=== PATIENT | male | born 1955 | race Caucasian/White ===

== ENCOUNTER 2021-01-15 19:06 | Inpatient (IN) | payer MEDICARE, SELFPAY ==
[2021-01-15] VITALS (8 sets, daily range): BP systolic 112–131; BP diastolic 74–101; PULSE 103–164; RESP 16–29; TEMP 36.4; O2SAT 91–100
--- NOTE | ~2021-01-15 | US_ITS ---
EXAMINATION: US right upper quadrant DATE: 01/19/2021 11:22 INDICATION: Right upper quadrant pain TECHNIQUE: Multiple grayscale and Doppler ultrasound images of the abdomen were obtained. COMPARISON: None available FINDINGS: Bowel gas obscures visualization of the pancreas. The visualized portions of the pancreas a re unremarkable. The liver demonstrates increased echogenicity, heterogenous echotexture, and decreas ed through transmission. No surface nodularity. Normal hepatopetal flow in the main portal vein. The gallbladder is normal with no abnormal wall thickening, pericholecystic fluid or stones. The normal c ommon bile duct measures 3 mm. IMPRESSION: 1. Diffuse hepatic steatosis Reviewed, dictated and finalized at location B.
--- NOTE | ~2021-01-15 | CT_ITS ---
EXAMINATION: CT brain wo con DATE: 01/17/2021 12:45 INDICATION: Confusion. COVID-19 positive. TECHNIQUE: Computed tomography (CT) of the head was performed without intravenous contrast. The mA wa s adjusted according to patient size. Iterative reconstruction technique was employed. The dose-lengt h product was 529.67 mGy-cm. COMPARISON: Head CT 10/14/2012 FINDINGS: There are scattered areas of low attenuation in the cerebral white matter, which is within normal limits for the patient's age. There is no intracranial hemorrhage, acute infarction, or abnorm al intracranial mass lesion. The ventricles are normal in size. The orbits are normal. There is mucos al thickening in the paranasal sinuses. The mastoid air cells are normal. IMPRESSION: 1. Normal aging brain. Reviewed, dictated and finalized at location A. IMPRESSION: 1. Normal aging brain.
--- NOTE | ~2021-01-15 | XR_ITS ---
EXAMINATION: XR chest 1V portable EXAM DATE: 01/19/2021 05:25 INDICATION: COVID pneumonia. TECHNIQUE: Portable AP frontal chest x-ray was obtained. Comparison is made to prior examination from 01/15/2021. FINDINGS: Again there is moderate amount of patchy bilateral airspace disease, appearance consistent with COVID pneumonia. Left hemidiaphragm elevation, could indicate chronic paralysis. No pneumothorax or pleural effusion. Cardiomediastinal silhouette is normal. IMPRESSION: 1. Moderate bilateral acute airspace disease consistent with COVID pneumonia. 2. Elevated left hemidiaphragm. Once patient's acute episode resolves, this could be evaluated with a fluoroscopic sniff test. Reviewed, dictated and finalized at location A. IMPRESSION: 1. Moderate bilateral acute airspace disease consistent with COVID pneumonia. 2. Elevated left hemidiaphragm. Once patient's acute episode resolves, this co uld be evaluated with a fluoroscopic sniff test.
--- NOTE | ~2021-01-15 | CT_ITS ---
EXAMINATION: CTA chest PE protocol DATE: 01/15/2021 20:43 INDICATION: Shortness of breath and cough TECHNIQUE: Computed tomography angiography (CTA) of the chest was performed with 100 mL Omnipaque-350 intravenous contrast timed to evaluate the pulmonary arteries. Coronal maximum intensity projection 3D-reconstructions were created by the technologist. The dose-length product (DLP) was 693.20 mGy-cm. Automated exposure control and iterative reconstruction technique were employed. COMPARISON: None. FINDINGS: The pulmonary arteries are well-opacified. No pulmonary embolism is identified. There are p atchy groundglass and nodular opacities of the lungs. There is no pleural effusion or pneumothorax. M ild mediastinal lymphadenopathy is noted. The heart size is normal. There is a small sliding hiatal h ernia. The liver is diffusely low in attenuation when compared with the spleen, consistent with hepat ic steatosis. There is mild nodularity of the left adrenal gland. There is mild thoracic spondylosis. IMPRESSION: 1. No pulmonary embolism. 2. Patchy groundglass and nodular opacities with an appearance compatible with COVID 19 pneumonia. Reviewed, dictated and finalized at location A.
--- NOTE | ~2021-01-15 | XR_ITS ---
EXAMINATION: XR chest 1V portable INDICATION: Cough and fever TECHNIQUE: Portable AP chest at 1935 hours COMPARISON: None available FINDINGS: There are patchy airspace opacities in all lung zones. No pleural effusion or pneumothorax is identified. The cardiomediastinal silhouette is normal. The visualized osseous structures are unre markable. IMPRESSION: 1. Patchy bilateral airspace opacities, consistent with pneumonia and/or pulmonary edema. Reviewed, dictated and finalized at location A. IMPRESSION: 1. Patchy bilateral airspace opacities, consistent with pneumonia and/or pulmon china edema.
--- NOTE | 2021-01-15 19:16 | ECG_ITS ---
Measurements Intervals [place] Rate: 171 P: [place]: 0 QRS: -18 QRSD: 88 T: 46 QT: 263 QTc: 445 Interpretive Statements ATRIAL FIBRILLATION WITH RAPID VENTRICULAR RESPONSE NONSPECIFIC ST & T-WAVE ABNORMALITY- HIGH LATERAL LEADS ABNORMAL ECG Electronically Signed On 01-16-2021 8:25:27 CDT by Sharif Galvan D.O.
--- NOTE | 2021-01-15 19:22 | ED.GENADULT ---
HPI - General Adult General Chief complaint: Nausea/Vomiting/Diarrhea Stated complaint: fever/ rapid HR Time Seen by Provider: 01/15/21 19:14 Source: RN notes reviewed History of Present Illness HPI narrative: Patient presents to emergency department from home for not feeling well. Patient states symptoms began 2 days ago with a cough this been nonproductive as well as generalized fatigue he states he is also been having associated nausea vomiting and diarrhea with generalized abdominal cramping he denies any measured fever but states he has been feeling hot at home. States he has been feeling shortness of breath but denies any chest pain patient states he has not had Covid vaccine he denies any loss of smell or taste Related Data Home Medications Medication Instructions Recorded Confirmed insulin human U-100 NPH-regulr See Rx Instructions SUB-Q .COMPLEX 05/02/20 10/05/20 70-30 mix 100 unit/mL subcutaneous susp Allergies Allergy/AdvReac Type Severity Reaction Status Date / Time No Known Allergies Allergy Verified 10/05/20 08:58 Review of Systems Review of Systems: Narrative: Gen.: Denies fevers or chills Eyes: Denies eye pain or visual change ENT: Denies congestion Respiratory: See HPI CV: Denies chest pain or palpitations GI: Reports nausea vomiting diarrhea Musculoskeletal: Denies back pain or muscle pain Neuro: Reports generalized weakness Skin: Denies rash Except as documented, all other systems reviewed and negative PMFSH Past Medical History Medical History Essential hypertension Mixed hyperlipidemia Type 2 diabetes mellitus without complication Family History Family History (System 04/14/20 @ 10:44 by Courtney Rodriguez) Father Acute myocardial infarction Mother Acute myocardial infarction Social History Social History Smoking status: Never smoker Alcohol intake: never Exam Narrative: Exam Narrative: APPEARANCE: No acute distress, nontoxic, resting in bed EYES: EOMI HEENT: Normocephalic, atraumatic, OMM RESPIRATORY: No respiratory distress Clear to auscultation bilaterally with no rhonchi wheezing or rales. CARDIOVASCULAR: Tachycardic and regular without murmurs rubs or gallops. ABDOMINAL: Soft, nontender, nondistended, no rebound or guarding MUSCULOSKELETAl: Moves all extremities. No clubbing, cyanosis or edema. NEURO: Awake and alert x 3. Following commands, speech normal, no focal deficits SKIN:: Warm, dry. No rashes lesions or abrasions PSYCHIATRIC: Normal affect/mood, Course Course Emergency Course: Discussed with Dr. Galvan for cardiology patient's persistent A. fib with RVR at this time request patient be started on metoprolol 25 mg p.o. every 6 hours agrees with Marcelino and will follow as inpatient Discussed with CRYSTAL Greene for Dr. Garrido presentation work-up agrees with admission at this time Discussed with patient and family results of workup and diagnosis. Discussed need for admission. Patient and family understand and agree to current treatment plan Vital Signs Vital signs: Vital Signs Pulse Rate 157 H 01/15/21 19:26 Respiratory Rate 29 H 01/15/21 19:26 Blood Pressure 112/79 01/15/21 19:26 Pulse Oximetry 91 01/15/21 19:26 Temperature 97.6 F 01/15/21 19:42 Pulse Rate 133 H 01/15/21 21:33 Respiratory Rate 26 H 01/15/21 21:31 Blood Pressure 122/101 H 01/15/21 21:31 Pulse Oximetry 93 01/15/21 21:31 Medical Decision Making Vital Signs Vital Signs: Vital Signs Pulse Rate 157 H 01/15/21 19:26 Respiratory Rate 29 H 01/15/21 19:26 Blood Pressure 112/79 01/15/21 19:26 Pulse Oximetry 91 01/15/21 19:26 Temperature 97.6 F 01/15/21 19:42 Pulse Rate 133 H 01/15/21 21:33 Respiratory Rate 26 H 01/15/21 21:31 Blood Pressure 122/101 H 01/15/21 21:31 Pulse Oximetry 93 01/15/21 21:31 Lab Data Result
[2021-01-15] MEDS: SODIUM CHLORIDE 0.9% IV 1,000 ML 999 ML IV CONT (19:26)
[2021-01-15] MEDS: dilTIAZem HCl INJ 25 MG/5 ML VIAL 10 MG IV PUSH (19:26)
[2021-01-15 19:53] LABS: Basophils Percent Auto 0.1 % (0.2-1.2); Hematocrit 46.5 % (42.0-52.0); Hemoglobin 16.2 g/dL (14.0-18.0); Immature Granulocyte Absolute 0.04 K/mm3 (0.00-0.031); Immature Granulocyte Percent A 0.5 % (0-0.5); Lymphocytes Absolute Auto 0.72 K/mm3 (0.9-3.2); Lymphocytes Percent Auto 9.6 % (18.3-44.2); Mean Corpuscular HGB Conc 34.8 g/dl (32-36); Mean Corpuscular Hemoglobin 27.8 pg (26-34); Mean Corpuscular Volume 79.9 fl (80-100); Mean Platelet Volume 11.1 fl (7.4-10.4); Monocytes Absolute Auto 0.6 K/mm3 (0.1-0.6); Monocytes Percent Auto 8.2 % (2.6-8.5); Neutrophils Absolute Auto 6.1 K/mm3 (1.3-6.7); Neutrophils Percent Auto 81.6 % (45.5-73.1); Platelet Count Result 173 k/mm3 (150-375); Red Blood Count 5.82 M/mm3 (4.6-6.20); White Blood Count 7.5 K/mm3 (4.5-10.0)
[2021-01-15 19:58] LABS: Prothrombin Time 13.5 Seconds (11.1-14.7)
[2021-01-15 19:59] LABS: Lactic Acid Reflex 2.2 mmol/L (0.7-2.1)
[2021-01-15 20:00] LABS: Alanine Aminotransferase 61 U/L (4-50); Albumin Level 4.3 g/dL (3.5-5.1); Alkaline Phosphatase 80 U/L (38-126); Anion Gap 12 mmol/L (8-16); Aspartate Amino Transferase 90 U/L (17-59); Bilirubin,Total 1.1 mg/dL (0.2-1.3); Blood Urea Nitrogen 18 mg/dL (9-20); Calcium 8.7 mg/dL (8.4-10.2); Carbon Dioxide 28 mmol/L (22-30); Chloride 91 mmol/L (98-107); Estimated CRCL calculation 78 ml/min; Estimated Glomerular Filt Rate > 60; Glucose 258 mg/dL (75-110); Lipase 62 U/L (23-300); Potassium 3.7 mmol/L (3.4-5.0); Sodium 131 mmol/L (137-145)
[2021-01-15 20:09] LABS: NT Pro B Type Natriuretic Pept 168 PG/ML (5-100)
[2021-01-15 20:12] LABS: Troponin I < 0.012 ng/mL (0.000-0.034)
[2021-01-15 20:57] LABS: D Dimer 0.99 ug/mL (<0.48)
[2021-01-15] MEDS: METOPROLOL TARTRATE 25 MG TABLET PO (21:33)
[2021-01-15 22:03] LABS: Add Urine Microscopic? YES; Appearance Urine Clear (Clear); Bilirubin Urine Negative (Negative); Blood Urine 1+ (Negative); Color Urine Yellow (Yellow); Glucose Urine UA 3+ mg/dL (Negative); Ketones Urine 1+ mg/dL (Negative); Leukocyte Esterase Ur Negative LEU/UL (Negative); Mucus Urine Rare /lpf; Nitrate Urine Negative (Negative); Protein Urine 3+ mg/dL (Negative); RBC Urine 0-2 /hpf (0-2); Squamous Epithelial Cell Urine Rare /hpf (Few); WBC Urine 0-3 /hpf
[2021-01-15 22:21] LABS: Specific Grav Ur 1.046 (1.001-1.035)
--- NOTE | 2021-01-15 22:21 | ECG_ITS ---
Measurements Intervals [place] Rate: 114 P: [place]: 0 QRS: 157 QRSD: 102 T: -15 QT: 316 QTc: 436 Interpretive Statements ATRIAL FIBRILLATION WITH RAPID VENTRICULAR RESPONSE BORDERLINE ST-T WAVE ABNORMALITY- INF/LAT LEADS BASELINE ARTIFACT- II, III, AVR, AVF, V2-V6 ABNORMAL ECG Electronically Signed On 01-16-2021 8:32:16 CDT by Sharif Galvan D.O.
[2021-01-15 22:39] LABS: Reflex Lactic Acid Yes or No Add Lactic
[2021-01-15] MEDS: ENOXAPARIN 100 MG/ML SYRINGE SUB-Q (22:59)
[2021-01-16] VITALS (14 sets, daily range): BP systolic 112–142; BP diastolic 7–86; PULSE 68–119; RESP 16–28; TEMP 35.8–37.4; O2SAT 90–98; BMI 31.1
--- NOTE | 2021-01-16 00:20 | ADMGEN ---
This patient, Shreyas Ramirez, was admitted to IMU Room 211-01 at 0020. Patient/family oriented to hospital policies and general routines including ID bracelet, bed and alarms, visiting hours, pain management, procedures, bathroom and other care routines, personal items, smoking policy, room service/diet, and visiting hours. Information on how to activate the Rapid Response Team has been discussed. Patient/Family are encouraged to report perceived risks to care and to ask questions if they do not understand what they are told or what they should do.
[2021-01-16 01:22] LABS: Lactic Acid 1.8 mmol/L (0.7-2.1)
[2021-01-16 01:35] LABS: Troponin I < 0.012 ng/mL (0.000-0.034)
--- NOTE | 2021-01-16 01:45 | PM.IMHP ---
H&P: HPI History of Present Illness Date/Time: 01/16/21 01:45 this is a 65-year-old male patient who states that he is been having a cough and fever and chills for at least 2 days. His cough is nonproductive. He denies any chest pain. He denies having any irregular heartbeat in the past. The patient stated he has not been around any sick contacts. Patient has generalized fatigue and body aches. The patient has been short of breath with exertion. He denies any loss of smell or taste and has not had his COVID vaccine. His blood sugar was 258. Troponin was negative. Lactic initially was 2.2. Chest x-ray was read as patchy bilateral airspace opacities, consistent with pneumonia and/or pulmonary edema. He had a chest CT a which was read as no pulmonary embolism. Patchy ground-glass and nodular opacities with in appearance compatible with COVID-19 pneumonia. Patient was found to be in AFib RVR. The patient was started on IV Cardizem drip. His initial heart rate was 157 and is now in the lower 100s. The patient was swabbed for COVID-19 and cardiology had been notified. Sodium 131. The patient is being admitted to observation in IMU on the date of service of 01/16/2021. Chief Complaint: Cough and fever Review of Systems Review of Systems: All systems reviewed & are unremarkable except as noted in HPI and below Constitutional: Constitutional: Reports as per HPI and Reports no additional constitutional complaints Eyes: Eyes: Reports as per HPI and Reports no additional eye complaints ENT: Reports system reviewed and no additional complaints, except as documented and Reports Normal hearing present Cardiovascular: Cardiovascular: Reports no additional cardiovascular complaints Respiratory: Respiratory: Reports no additional respiratory complaints and Reports no additional respiratory complaints Gastrointestinal: Gastrointestinal: Reports as per HPI and Reports no additional gastrointestinal complaints Musculoskeletal: Musculoskeletal: Reports no additional musculoskeletal complaints Integumentary/Breasts: Skin/Breast: Reports system reviewed and no additional complaints, except as docu and Reports as per HPI Neurologic: Reports system reviewed and no additional complaints, except as documented, Reports as per HPI and Reports Normal hearing present Psychiatric: Psychiatric: Reports no additional psychiatric complaints and Reports as per HPI Endocrine: Endocrine: Reports no additional endocrine complaints Hematologic/Lymphatic: Hematologic/Lymphatic: Reports no additional hematologic/lymphatic complaints Allergic/Immunologic: Allergic/Immunologic: Reports no additional allergic/immunologic complaints [facility] Past Medical History Medical History (Updated 01/16/21 @ 01:57 by Ramona Driver NP) Essential hypertension Mixed hyperlipidemia Type 2 diabetes mellitus without complication Surgical History Surgical History (Updated 01/16/21 @ 01:51 by Ramona Driver NP) No pertinent past surgical history Family History Family History Father Acute myocardial infarction Mother Acute myocardial infarction Sibling Multiple sclerosis Social History Social History (Updated 01/16/21 @ 01:52 by Ramona Driver NP) Social History: The patient lives with his significant other. 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 The patient has 2 children. The patient stated he does not have a durable power criminal attorney for healthcare. The patient is a full code. The patient is a lifelong nonsmoker. He denies any alcohol or illicit drugs. Smoking status: Never smoker Alcohol intake: never Substance use: never Substance use type: does not use Gender identity (if verbalized by the patient): Male Spiritual care concerns: No Meds Home Medications and Allergies Home Medications Medication Instructions Recorded Confirmed Type insulin human U-100 N
[2021-01-16] MEDS: METOPROLOL TARTRATE 25 MG TABLET PO ×3 (04:04→21:20)
[2021-01-16 05:05] LABS: Basophils Percent Auto 0.2 % (0.2-1.2); Hematocrit 45.4 % (42.0-52.0); Hemoglobin 15.7 g/dL (14.0-18.0); Immature Granulocyte Absolute 0.04 K/mm3 (0.00-0.031); Immature Granulocyte Percent A 0.7 % (0-0.5); Lymphocytes Absolute Auto 0.78 K/mm3 (0.9-3.2); Lymphocytes Percent Auto 13.9 % (18.3-44.2); Mean Corpuscular HGB Conc 34.6 g/dl (32-36); Mean Corpuscular Hemoglobin 27.9 pg (26-34); Mean Corpuscular Volume 80.6 fl (80-100); Monocytes Absolute Auto 0.5 K/mm3 (0.1-0.6); Monocytes Percent Auto 8.9 % (2.6-8.5); Neutrophils Absolute Auto 4.3 K/mm3 (1.3-6.7); Neutrophils Percent Auto 76.3 % (45.5-73.1); Platelet Count Result 144 k/mm3 (150-375); Red Blood Count 5.63 M/mm3 (4.6-6.20); White Blood Count 5.6 K/mm3 (4.5-10.0)
[2021-01-16 05:22] LABS: Alanine Aminotransferase 50 U/L (4-50); Albumin Level 3.7 g/dL (3.5-5.1); Alkaline Phosphatase 64 U/L (38-126); Anion Gap 8 mmol/L (8-16); Aspartate Amino Transferase 75 U/L (17-59); Bilirubin,Total 0.9 mg/dL (0.2-1.3); Blood Urea Nitrogen 17 mg/dL (9-20); Calcium 8.2 mg/dL (8.4-10.2); Carbon Dioxide 25 mmol/L (22-30); Chloride 95 mmol/L (98-107); Estimated CRCL calculation 93 ml/min; Estimated Glomerular Filt Rate > 60; Glucose 259 mg/dL (75-110); Magnesium 1.7 mg/dL (1.6-2.3); Potassium 3.4 mmol/L (3.4-5.0); Sodium 128 mmol/L (137-145)
[2021-01-16 05:32] LABS: Troponin I < 0.012 ng/mL (0.000-0.034)
[2021-01-16 06:10] LABS: Hemoglobin A1C 7.9 % (<5.7)
--- NOTE | 2021-01-16 06:34 | ECG_ITS ---
Measurements Intervals [place] Rate: 71 P: 75 [place]: 201 QRS: -24 QRSD: 108 T: 33 QT: 409 QTc: 445 Interpretive Statements SINUS RHYTHM NONSPECIFIC T-WAVE ABNORMALITY- ANTEROLAT/INF LEADS BASELINE WANDER- V1-V6 BORDERLINE ECG Electronically Signed On 01-17-2021 9:10:09 CDT by Sharif Galvan D.O.
--- NOTE | 2021-01-16 08:01 | PM.CNCAR ---
Assessment and Plan Assessment and plan (1) Atrial fibrillation with rapid ventricular response: Code(s): I48.91 - Unspecified atrial fibrillation Status: Acute Assessment and Plan: New onset probably related to possible Covid pneuomonia. [id number] 3. On Lovenox. Spontaneously cardioverted. Will stop Diltiazem drip. Start Metoprolol 25 mg PO every 12 hours to decrease risk of recurrence. (2) Suspected 2019-nCoV infection: Code(s): Z20.822 - Contact with and (suspected) exposure to COVID-19 Status: Acute Assessment and Plan: Covid status pending. Management as per hospitalist. (3) Essential hypertension: Code(s): I10 - Essential (primary) hypertension Status: Chronic Assessment and Plan: Stable. (4) Mixed hyperlipidemia: Code(s): E78.2 - Mixed hyperlipidemia Status: Chronic (5) Type 2 diabetes mellitus without complication: Code(s): E11.9 - Type 2 diabetes mellitus without complications Status: Chronic Assessment and Plan: Management as per hospitalist. History of Present Illness History of Present Illness Consult date/time: 01/16/21 08:01 Reason for consult: Atrial fib with RVR. 65 yr old man presents to ER with sob and fever. He has history of DM, hypertension and dyslipidemia. Reports that in last 2 days he felt fatigue, dry cough, fever and chills. He came to ER and it was noted he was in rapid atrial fib at 157 bpm. He was started on Diltiazem drip and around 5 am this morning he spontaneously cardioverted to sinus rhythm. Currently he reports dry cough and fatigue, but no fever or chills and no chest pain or sob. Normally he is able to walk over 1 mile without any problems. He did not get Covid vaccine. His covid test is pending. CXR shows patchy bilateral airspace opacities c/w pneumonia. CTA chest shows no pulm embolism; patchy groundglass and nodule opacities c/w covid pneumonia. Sodium is 128, AST 90 went to 75 and ALT 61 went to 50. TSH is normal. EKG snows atrial fibrilllation with RVR. Reason For Visit: COVID-19 suspected, atrial fibrillation with RVR Review of Systems Review of Systems: All systems reviewed & are unremarkable except as noted in HPI and below Constitutional: Constitutional: Reports as per HPI, Reports chills, Reports fatigue and Reports fever(s) Cardiovascular: Cardiovascular: Reports as per HPI, Denies chest pain, Denies irregular heart rhythm, Denies leg edema and Reports dyspnea Respiratory: Respiratory: Reports as per HPI, Reports cough and Reports dyspnea Gastrointestinal: Gastrointestinal: Reports as per HPI and Denies abdominal pain Genitourinary: Genitourinary: Reports as per HPI and Denies dysuria Musculoskeletal: Musculoskeletal: Reports as per HPI Neurologic: Reports as per HPI, Denies dizziness and Denies syncope [facility] Past Medical History Medical History (Updated 01/16/21 @ 01:57 by Ramona Driver NP) Essential hypertension Mixed hyperlipidemia Type 2 diabetes mellitus without complication Surgical History Surgical History (Updated 01/16/21 @ 01:51 by Ramona Driver NP) No pertinent past surgical history Family History Family History Father Acute myocardial infarction Mother Acute myocardial infarction Sibling Multiple sclerosis Social History Social History (Updated 01/16/21 @ 01:52 by Ramona Driver NP) Social History: The patient lives with his significant other. 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 The patient has 2 children. The patient stated he does not have a durable power ip technology transactions attorney for healthcare. The patient is a full code. The patient is a lifelong nonsmoker. He denies any alcohol or illicit drugs. Smoking status: Never smoker Alcohol intake: never Substance use: never Substance use type: does not use Gender identity (if verbalized by the patient): Male Spiritual c
[2021-01-16 08:56] LABS: Glucose Point of Care 260 (65-105)
[2021-01-16] MEDS: INSULIN ASPART (*BKC) 100 UNITS/ML SUB-Q ×2 (09:47→13:07)
[2021-01-16] MEDS: INSULIN HUMAN ISOPHAN/REGULAR 70/30 (*BKC) 100 UNITS/ML 50 UNITS SUB-Q (09:57)
[2021-01-16] MEDS: metFORMIN HCL 500 MG TABLET 1000 MG PO (09:58)
[2021-01-16] MEDS: ENOXAPARIN 100 MG/ML SYRINGE SUB-Q ×2 (09:58→21:21)
--- NOTE | 2021-01-16 11:17 | PM.IMPN ---
Progress Note: A&P Assessment and Plan (1) Atrial fibrillation with rapid ventricular response: Code(s): I48.91 - Unspecified atrial fibrillation Status: Acute (2) Suspected 2019-nCoV infection: Code(s): Z20.822 - Contact with and (suspected) exposure to COVID-19 Status: Acute (3) Pneumonia: Code(s): J18.9 - Pneumonia, unspecified organism Status: Acute (4) On long term care phlebotomist drug therapy: Code(s): Z79.899 - Other long term care phlebotomist (current) drug therapy Status: Acute (5) Type 2 diabetes mellitus without complication: Code(s): E11.9 - Type 2 diabetes mellitus without complications Status: Chronic (6) Essential hypertension: Code(s): I10 - Essential (primary) hypertension Status: Chronic (7) Mixed hyperlipidemia: Code(s): E78.2 - Mixed hyperlipidemia Status: Chronic Additional Plan This is a 65-year-old male patient who states that he is been having a cough and fever and chills for at least 2 days. His cough is nonproductive. He denies any chest pain. He denies having any irregular heartbeat in the past. The patient stated he has not been around any sick contacts. Patient has generalized fatigue and body aches. The patient has been short of breath with exertion. He denies any loss of smell or taste and has not had his COVID vaccine. His blood sugar was 258. Troponin was negative. Lactic initially was 2.2. Chest x-ray was read as patchy bilateral airspace opacities, consistent with pneumonia and/or pulmonary edema. He had a chest CT a which was read as no pulmonary embolism. Patchy ground-glass and nodular opacities with in appearance compatible with COVID-19 pneumonia. Patient was found to be in AFib RVR. The patient was started on IV Cardizem drip. His initial heart rate was 157 and is now in the lower 100s. The patient was swabbed for COVID-19 and cardiology had been notified. Sodium 131. The patient is being admitted to observation in IMU on the date of service of 01/16/2021. # Bialteral pneumonia; likely COVID. swab pending. on azithromycin and rocephin. check procalcitonin, if they do that. if normal, and covid positive, may stop antibiotics. # lactic acidosis: resole dnow. # Afib with rvr: newly diagnosed. likely from pneumonia. back to sinus rhythm since this am. cardiology on board. lovenox sq. on metoprolol per cards. was startedon diltizaem gtt whcihis now stoped. TSH normal. # Suspected COVID 19 inection: on isolation. intermittne mild hypoxia noted at night, could related to possible sleep apnea. # Hyponatremia: monitor. # Type 2 DM: ssi. a1c 7.9. home insulin. # HTN: home med # HLP: atorvastain on hold due to elevated liver enzymes. likely able to resume. # Elevated liver enzymes: mildly elevated. likely from infectious process as well. or hepatic congestion. # DVT proph: lovenox 10 mg sq bid Subjective Date/time seen: 01/16/21 11:17 overrustt aroudn 5 am he is back to sinus rhythm. no fever, chills. reports cough. denies any sob. low Spo2 alarms noted in the tele monitor as well. Review of Systems Review of Systems: Narrative: - CONSTITUTIONAL: Denies weight loss, fever and chills. - HEENT: Denies changes in vision and hearing - RESPIRATORY: Denies SOB , rerots cough. - CV: Denies palpitations and CP. - GI: Denies abdominal pain, nausea, vomiting and diarrhea. - : Denies dysuria and urinary frequency. - MSK: Denies myalgia and joint pain. - SKIN: Denies rash and pruritus. - NEUROLOGICAL: Denies headache and syncope. - PSYCHIATRIC: Denies recent changes in mood. Denies anxiety and depression. All systems reviewed & are unremarkable except as noted in HPI and below Exam Narrative: Exam Narrative: GENERAL: The patient is well developed, not in acute distress HEENT: Nonicteric sclerae, PERRLA, EOMI. Oropharynx clear. Moist mucous membranes. Conjunctivae appear well perfused. CHEST: Chest wall is nontender. HEART
[2021-01-16 12:39] LABS: Glucose Point of Care 216 (65-105)
[2021-01-16 18:05] LABS: Glucose Point of Care 68 (65-105)
[2021-01-16 18:05] LABS: Glucose Point of Care 78 (65-105)
[2021-01-16 19:42] LABS: SARS-CoV-2 RNA PCR Positive
[2021-01-16 20:46] LABS: Glucose Point of Care 80 (65-105)
[2021-01-17] VITALS (12 sets, daily range): BP systolic 111–142; BP diastolic 61–84; PULSE 71–99; RESP 18–20; TEMP 36.7–37.8; O2SAT 87–96
--- NOTE | 2021-01-17 | ECHO_ITS ---
Patient Info Name: hSreyas Ramirez Age: 65 years : 1955 Gender: Male Ht: 66 in Wt: 193 lbs BSA: 2.05 m2 HR: 77 bpm BP: 142 / 84 mmHg Technical Quality: Fair Exam Date: 01/17/2021 11:32 AM Exam Location: [facility], formerly [facility] Pulmonary Patient Status: Inpatient Admit Date: 01/15/2021 Staff Ordering Physician: Ramona Driver NP Prior Authorization Nurse: Shantel Lopez RDCS Attending Provider: Ollie Montesinos MD Referring Physician: Neisha SMITH; Exam Type: CA echo doppler color flow Study Info Indications I48.0 - Paroxysmal atrial fibrillation Complete two-dimensional, color flow and Doppler transthoracic echocardiogram is performed. Summary 1. Complete two-dimensional, color flow and Doppler transthoracic echocardiogram is performed. 2. Left ventricular chamber dimension is normal. 3. Ventricular septum is sigmoid shaped. No LVOT obstruction. 4. Left ventricular systolic function is normal, estimated at 65-70%. 5. The left ventricular diastolic function is grade I diastolic dysfunction. 6. E/e' 7 is not elevated. 7. Global longitudinal strain is abnormal at -14.6%. 8. There is mild aortic valve sclerosis. Left Ventricle E/e' 7 is not elevated. Global longitudinal strain is abnormal at -14.6%. Ventricular septum is sigmoid shaped. No LVOT obstruction. Left ventricular chamber dimension is normal. Left ventricular systolic function is normal, estimated at 65-70%. The left ventricular diastolic function is grade I diastolic dysfunction. Right Ventricle Right ventricular chamber dimension is normal. Right ventricular systolic function is normal. Left Atria Left atrial chamber dimension is normal. Right Atria Right atrial chamber dimension is normal. Aortic Valve The aortic valve is trileaflet. There is mild aortic valve sclerosis. There is no aortic valve stenosis. There is no aortic valve regurgitation. Pulmonic Valve There is no pulmonic regurgitation. Mitral Valve There is no mitral valve stenosis. There is no mitral valve regurgitation. Tricuspid Valve There is no tricuspid valve regurgitation. Pericardium/Pleural There is no pericardial effusion. Inferior Vena Cava Inferior vena cava is not well visualized. Aorta The aortic root size at the sinus of Valsalva is normal. Left Ventricular Outflow Tract Name Value Normal LVOT 2D LVOT Diameter 1.9 cm LVOT Doppler LVOT Peak Gradient 5 mmHg LVOT Mean Gradient 3 mmHg LVOT VTI 20 cm LVOT VTI/AV VTI Ratio 0.8 LVOT Stroke Volume 56 ml LVOT CO 4.3 l/min LVOT CI 2.1 l/min/m2 Pulmonic Valve Name Value Normal RVOT Doppler RVOT Peak Gradient 2 mmHg
[2021-01-17 05:30] LABS: Basophils Percent Auto 0.1 % (0.2-1.2); Hematocrit 44.9 % (42.0-52.0); Hemoglobin 15.3 g/dL (14.0-18.0); Immature Granulocyte Absolute 0.04 K/mm3 (0.00-0.031); Immature Granulocyte Percent A 0.5 % (0-0.5); Lymphocytes Absolute Auto 0.95 K/mm3 (0.9-3.2); Mean Corpuscular HGB Conc 34.1 g/dl (32-36); Mean Corpuscular Hemoglobin 27.3 pg (26-34); Mean Corpuscular Volume 80.2 fl (80-100); Monocytes Absolute Auto 0.4 K/mm3 (0.1-0.6); Monocytes Percent Auto 5.6 % (2.6-8.5); Neutrophils Absolute Auto 5.9 K/mm3 (1.3-6.7); Neutrophils Percent Auto 80.8 % (45.5-73.1); Platelet Count Result 175 k/mm3 (150-375); Red Cell Distribution Width 14.1 % (11.5-14.5); White Blood Count 7.3 K/mm3 (4.5-10.0)
[2021-01-17 05:45] LABS: Alanine Aminotransferase 53 U/L (4-50); Albumin Level 3.7 g/dL (3.5-5.1); Alkaline Phosphatase 65 U/L (38-126); Anion Gap 7 mmol/L (8-16); Aspartate Amino Transferase 87 U/L (17-59); Bilirubin,Total 0.9 mg/dL (0.2-1.3); Blood Urea Nitrogen 19 mg/dL (9-20); Calcium 8.3 mg/dL (8.4-10.2); Carbon Dioxide 31 mmol/L (22-30); Chloride 94 mmol/L (98-107); Estimated CRCL calculation 85 ml/min; Estimated Glomerular Filt Rate > 60; Glucose 122 mg/dL (75-110); Potassium 3.3 mmol/L (3.4-5.0); Sodium 132 mmol/L (137-145)
--- NOTE | 2021-01-17 07:49 | PM.PNCARD ---
Progress Note: A&P Assessment and Plan (1) Atrial fibrillation with rapid ventricular response: Code(s): I48.91 - Unspecified atrial fibrillation Status: Acute Assessment and Plan: New onset probably related to Covid pneuomonia. [id number] 3. On Lovenox; if no recurrence of atrial fib, consider changing Lovenox to DVT prophylaxis dose. Spontaneously cardioverted. Stopped Diltiazem drip. Started Metoprolol 25 mg PO every 12 hours to decrease risk of recurrence. Mag 1.7. Will give Mag Chito 2 gm IVx1. Potassium 3.3. KCl already ordered. (2) Essential hypertension: Code(s): I10 - Essential (primary) hypertension Status: Chronic Assessment and Plan: Stable. (3) Mixed hyperlipidemia: Code(s): E78.2 - Mixed hyperlipidemia Status: Chronic (4) Type 2 diabetes mellitus without complication: Code(s): E11.9 - Type 2 diabetes mellitus without complications Status: Chronic Assessment and Plan: Management as per hospitalist. (5) Confusion: Code(s): R41.0 - Disorientation, unspecified Status: Acute Assessment and Plan: Covid related? Needs evaluation by hospitalist. (6) COVID-19: Code(s): U07.1 - COVID-19 Status: Acute Assessment and Plan: Management as per hospitalist. Subjective Date/time seen: 01/17/21 07:49 He is confused this morning. He pulled off all his clothes and telemetry leads. He is alert only to name and not place or year. Denies chest pain, sob, fatigue, fever/chills. Exam Const: General: cooperative, no acute distress, alert and confusion Resp: Auscultation: clear to auscultation bilaterally, no crackles, no rales, no rhonchi and no wheezes Cardio: Rate: regular rate Rhythm: regular rhythm Heart sounds: no murmurs Peripheral pulses: dorsalis pedis present GI: GI Palp: No abdominal tenderness and Yes Soft to palpation Neuro: General: oriented to person, No oriented to place and No oriented to time Extrem: Right lower extremity: no edema Left lower extremity: no edema Objective Data Vital Signs Vital Signs: Vital Signs - 24 hr 01/16/21 08:00 01/16/21 09:55 01/16/21 10:00 Temperature 96.5 F L Pulse Rate 73 77 70 Respiratory Rate 20 Blood Pressure 124/80 Pulse Oximetry 93 01/16/21 12:00 01/16/21 14:00 01/16/21 16:00 Temperature 97.3 F L 98.4 F Pulse Rate 72 83 79 Respiratory Rate 20 24 H Blood Pressure 112/7 L 132/71 Pulse Oximetry 93 92 01/16/21 20:00 01/16/21 21:20 01/17/21 00:00 Temperature 99.3 F 98.9 F Pulse Rate 90 86 73 Respiratory Rate 20 20 Blood Pressure 142/84 H 129/61 Pulse Oximetry 92 90 01/17/21 04:00 Temperature 99.3 F Pulse Rate 87 Respiratory Rate 20 Blood Pressure 142/84 H Pulse Oximetry 92 Intake/Output Intake/Output: Intake & Output 01/14/21 01/15/21 01/16/21 01/17/21 23:59 23:59 23:59 23:59 Intake Total 1000 1240 Output Total 1700 700 Balance 1000 -460 -700 Meds/Results Medications: Active Medications Generic Name Dose Route Start Last Admin Trade Name Freq PRN Reason Stop Dose Admin Albuterol 2 puff 01/16/21 01:42 Albuterol Sulfate (*Sp) Aerosol 1 Puff INHALATION Q6HRT PRN Shortness Of Breath Dextrose 12.5 gm 01/16/21 01:54 Dextrose 50% 25 Gm/50 Ml Syringe IV PUSH PRN PRN Hypoglycemia Protocol Enoxaparin Sodium 100 mg 01/16/21 11:00 01/16/21 21:21 Enoxaparin 100 Mg/Ml Syringe SUB-Q 100 mg Q12H CHAZ Administration Glucagon 1 mg 01/16/21 01:54 Glucagon For Inj 1 Mg Vial IM PRN PRN Hypoglycemia Protocol Glucose 15 gm 01/16/21 01:54 Glucose Oral Gel 15 Gm Of Glucse In 37.5 Gm Tube PO PRN PRN Hypoglycemia Protocol Dextrose 1,000 mls @ 100 mls/hr 01/16/21 01:54 Dextrose 5% 1,000 Ml IVPB PRN PRN Hypoglycemia Protocol Magnesium Sulfate 2 gm in 50 mls @ 50 mls/hr 01/17/21 07:25 Magnesium Sulf 2
[2021-01-17 08:58] LABS: Glucose Point of Care 136 (65-105)
[2021-01-17 08:59] LABS: Glucose Point of Care 148 (65-105)
[2021-01-17] MEDS: POTASSIUM CHLORIDE 20 MEQ TABLET 40 MEQ PO (09:42)
[2021-01-17] MEDS: METOPROLOL TARTRATE 25 MG TABLET PO ×2 (09:42→20:41)
[2021-01-17] MEDS: ENOXAPARIN 100 MG/ML SYRINGE SUB-Q (09:43)
[2021-01-17] MEDS: MAGNESIUM SULF 2 GM/WATER 50ML 2 GM/50 ML BAG IVPB (09:43)
--- NOTE | 2021-01-17 12:02 | PM.IMPN ---
Progress Note: A&P Assessment and Plan (1) Confusion: Code(s): R41.0 - Disorientation, unspecified Status: Acute Assessment and Plan: Patient is alert but confused. More consistent with delirium. Call was placed to family but no answer at the listed. Need to determine baseline. Will check TSH and B12. Check CT of the brain. He is not eating so will add protonix for now to cover for gastritis. (2) Atrial fibrillation with rapid ventricular response: Code(s): I48.91 - Unspecified atrial fibrillation Status: Acute Assessment and Plan: Most likely in response to his COVID pneumonia. [id number] 3 and on Lovenox. He converted on Diltiazem and Metoprolol given in ED. Cardiology has been consulted. He is currently on metoprolol. No plans for occupational psychologist anticoagulation per cardiology. Change to Lovenox prophylaxis and add ASA. Echo is pending. (3) Pneumonia due to COVID-19 virus: Code(s): U07.1 - COVID-19; J12.82 - Pneumonia due to coronavirus disease 2018 Status: Acute Assessment and Plan: Patient with cough, GI symptoms and SOB. CXR showing patchy bilateral disease. He tested positive for COVID on 01/15. He was done well and has not required O2. No ABG noted. Continue to monitor. Abx stopped (4) Type 2 diabetes mellitus without complication: Code(s): E11.9 - Type 2 diabetes mellitus without complications Status: Chronic Assessment and Plan: A1c 7.9. The patient's blood glucose was reviewed on 01/17 Glucose remains well controlled. Continue AccuCheks covering with sliding scale. Hypoglycemia protocol available as needed. Not eating much so glucose lower than expected. Metformin on hold now. Will Hold 70/30 this morning and decrease the dose. Add supplements. (5) Essential hypertension: Code(s): I10 - Essential (primary) hypertension Status: Chronic Assessment and Plan: Patient's blood pressure was reviewed on 01/17 Blood pressure remains well controlled. Will continue current medications with metoprolol. (6) Mixed hyperlipidemia: Code(s): E78.2 - Mixed hyperlipidemia Status: Chronic Assessment and Plan: Liver enzymes elevated probably related to the virus. Lipitor on hold. Liver enzymes waxing and waning still. (7) DVT prophylaxis: Code(s): Z29.9 - Encounter for prophylactic measures, unspecified Status: Acute Assessment and Plan: Lovenox Subjective Date/time seen: 01/17/21 12:02 Interval history: 65yo male with DM and HTN here for cough and found to have COVID PNA. Assuming care. Chart reviewed. Patient is alert but confused. History is unreliable. Nursing states patient has been ambulating in his room naked. Review of Systems Review of Systems: ROS unobtainable: Yes unobtainable due to mental status Exam Narrative: Exam Narrative: AF 99.3 111/70 98 20 92% ra Gen - NARD HEENT -NC/AT. No facial asymmetry. Neck -supple. No meningismus signs. Chest -faint diffuse inspiratory crackles bilaterally. Normal respiratory rate. CV - RRR S1/S2. Telemetry showing no significant dysrhythmias Abd - Soft, NT/ND, Positive BS Ext - No pedal edema Neuro -alert but confused. No focal weakness. Psych - Nml mood and affect Skin - Warm and dry Objective Data Vital Signs Vital Signs: Vital Signs - 24 hr 01/16/21 14:00 01/16/21 16:00 01/16/21 20:00 Temperature 98.4 F 99.3 F Pulse Rate 83 79 90 Respiratory Rate 24 H 20 Blood Pressure 132/71 142/84 H Pulse Oximetry 92 92 01/16/21 21:20 01/17/21 00:00 01/17/21 04:00 Temperature 98.9 F 99.3 F Pulse Rate 86 73 87 Respiratory Rate 20 20 Blood Pressure 129/61 142/84 H Pulse Oximetry 90 92 01/17/21 08:00 01/17/21 08:26 01/17/21 09:42 Temperature 99.3 F Pulse Rate 99 98 Respiratory Rate 20 Blood Pressure 111/70 Pulse Oximetry 92 92 Intake/Output Intake
[2021-01-17 12:46] LABS: Glucose Point of Care 207 (65-105)
[2021-01-17] MEDS: INSULIN ASPART (*BKC) 100 UNITS/ML SUB-Q ×2 (12:49→17:43)
[2021-01-17 13:05] LABS: Base Excess ABG 2.1 mEq/l (+/-2.0); Fractional Inspired Oxygen 21 %; HCO3 ABG 24.2 mEq/l (22.0-26.0); Oxygen Content ABG 19.1 %vol (16.0-22.0); Oxygen Saturation ABG 91.2 % (95.0-100.0); PCO2 ABG 30.9 mmHg (35.0-45.0); PO2 ABG 53.7 mmHg (80.0-100.0); PO2 FiO2 Ratio Arterial Blood 2.56 %; Total Hemoglobin 15.3 g/dL (12.0-18.0)
[2021-01-17 13:07] LABS: Device ROOM AIR; Modified Allen's Test Pass; Site Drawn LEFT RADIAL; pH ABG 7.512 (7.350-7.450)
[2021-01-17] MEDS: PANTOPRAZOLE 40 MG TABLET PO (14:49)
[2021-01-17 17:22] LABS: Glucose Point of Care 251 (65-105)
[2021-01-17] MEDS: INSULIN HUMAN ISOPHAN/REGULAR 70/30 (*BKC) 100 UNITS/ML 15 UNITS SUB-Q (17:44)
[2021-01-17] MEDS: ACETAMINOPHEN 325 MG TABLET 650 MG PO (17:46)
[2021-01-17 20:00] LABS: Glucose Point of Care 195 (65-105)
[2021-01-18] VITALS (27 sets, daily range): BP systolic 115–160; BP diastolic 64–89; PULSE 63–144; RESP 17–26; TEMP 36.7–37.9; O2SAT 86–99
[2021-01-18 01:53] LABS: Alveolar/Arterial O2 Gradient 164.4 mmHg; Base Excess ABG 5.6 mEq/l (+/-2.0); Carboxyhemoglobin 0.3 % THb (0-2.0); Fractional Inspired Oxygen 36 %; HCO3 ABG 26.5 mEq/l (22.0-26.0); Methemoglobin ABG 0.2 %THb (0-1.5); Oxygen Content ABG 19.6 %vol (16.0-22.0); Oxygen Saturation ABG 94.2 % (95.0-100.0); Oxyhemoglobin 92.3 % THb (90.0-100.0); PCO2 ABG 28.9 mmHg (35.0-45.0); PO2 ABG 58.8 mmHg (80.0-100.0); PO2 FiO2 Ratio Arterial Blood 1.63 %; Reduced Hemoglobin 7.2 %THb (0-5.0); Total Hemoglobin 15.1 g/dL (12.0-18.0)
[2021-01-18 01:55] LABS: Device NASAL CANNULA; Modified Allen's Test Pass; Site Drawn RIGHT RADIAL; pH ABG 7.581 (7.350-7.450)
[2021-01-18 04:03] LABS: Basophils Percent Auto 0.1 % (0.2-1.2); Hematocrit 43.2 % (42.0-52.0); Hemoglobin 14.7 g/dL (14.0-18.0); Immature Granulocyte Absolute 0.06 K/mm3 (0.00-0.031); Immature Granulocyte Percent A 0.7 % (0-0.5); Lymphocytes Absolute Auto 0.75 K/mm3 (0.9-3.2); Lymphocytes Percent Auto 8.2 % (18.3-44.2); Mean Corpuscular Hemoglobin 27.7 pg (26-34); Mean Corpuscular Volume 81.5 fl (80-100); Mean Platelet Volume 11.4 fl (7.4-10.4); Monocytes Absolute Auto 0.4 K/mm3 (0.1-0.6); Monocytes Percent Auto 4.4 % (2.6-8.5); Neutrophils Absolute Auto 7.9 K/mm3 (1.3-6.7); Neutrophils Percent Auto 86.6 % (45.5-73.1); Platelet Count Result 204 k/mm3 (150-375); Red Cell Distribution Width 14.5 % (11.5-14.5); White Blood Count 9.1 K/mm3 (4.5-10.0)
[2021-01-18 04:29] LABS: Alanine Aminotransferase 55 U/L (4-50); Albumin Level 3.9 g/dL (3.5-5.1); Alkaline Phosphatase 72 U/L (38-126); Anion Gap 6 mmol/L (8-16); Aspartate Amino Transferase 90 U/L (17-59); Blood Urea Nitrogen 19 mg/dL (9-20); Calcium 8.5 mg/dL (8.4-10.2); Carbon Dioxide 32 mmol/L (22-30); Chloride 94 mmol/L (98-107); Estimated CRCL calculation 96 ml/min; Estimated Glomerular Filt Rate > 60; Glucose 182 mg/dL (75-110); Potassium 3.7 mmol/L (3.4-5.0); Sodium 132 mmol/L (137-145)
[2021-01-18 05:31] LABS: Folic Acid 10.1 ng/mL (2.76->20)
--- NOTE | 2021-01-18 08:09 | PM.PNCARD ---
Progress Note: A&P Assessment and Plan (1) Atrial fibrillation with rapid ventricular response: Code(s): I48.91 - Unspecified atrial fibrillation Status: Acute Assessment and Plan: New onset probably related to Covid pneuomonia. [id number] 3. On Lovenox; if no recurrence of atrial fib, consider changing Lovenox to DVT prophylaxis dose. On Aspirin 325 mg daily. Spontaneously cardioverted. Stopped Diltiazem drip. On Metoprolol 25 mg PO every 12 hours to decrease risk of recurrence. Echo 01/17/21 EF 65-70%, grade I diastolic dysfunction (E/e' 7). Echo is essentially normal. (2) Essential hypertension: Code(s): I10 - Essential (primary) hypertension Status: Chronic Assessment and Plan: Stable. (3) Mixed hyperlipidemia: Code(s): E78.2 - Mixed hyperlipidemia Status: Chronic Assessment and Plan: Hold off on statin due to transaminitis. (4) Type 2 diabetes mellitus without complication: Code(s): E11.9 - Type 2 diabetes mellitus without complications Status: Chronic Assessment and Plan: Management as per hospitalist. (5) Confusion: Code(s): R41.0 - Disorientation, unspecified Status: Acute Assessment and Plan: Covid infection/pneumonia related or his baseline? Needs evaluation by hospitalist. (6) COVID-19: Code(s): U07.1 - COVID-19 Status: Acute Assessment and Plan: Management as per hospitalist. Subjective Date/time seen: 01/18/21 08:09 Patient is alert but confused and oriented only to name (not place or year). Denies chest pain or sob. Exam Const: General: cooperative, no acute distress, alert and confusion Resp: Auscultation: clear to auscultation bilaterally, no crackles, no rales, no rhonchi and no wheezes Cardio: Rate: regular rate Rhythm: regular rhythm Heart sounds: no murmurs Peripheral pulses: dorsalis pedis present GI: GI Palp: No abdominal tenderness and Yes Soft to palpation Neuro: General: oriented to person, No oriented to place and No oriented to time Extrem: Right lower extremity: no edema Left lower extremity: no edema Objective Data Vital Signs Vital Signs: Vital Signs - 24 hr 01/17/21 08:26 01/17/21 09:42 01/17/21 12:00 Temperature 100.1 F H Pulse Rate 98 75 Respiratory Rate 20 Blood Pressure 135/77 Pulse Oximetry 92 90 01/17/21 13:00 01/17/21 16:00 01/17/21 17:46 Temperature 100.1 F H 100.1 F H Pulse Rate 86 Respiratory Rate 20 Blood Pressure 123/65 Pulse Oximetry 91 91 01/17/21 20:00 01/17/21 20:41 01/17/21 23:14 Temperature 98.0 F 98.0 F Pulse Rate 79 74 71 Respiratory Rate 20 18 Blood Pressure 121/64 130/69 Pulse Oximetry 93 96 01/18/21 00:00 01/18/21 00:06 01/18/21 01:56 Temperature Pulse Rate 75 75 Respiratory Rate Blood Pressure Pulse Oximetry 89 L 93 86 L 01/18/21 02:00 01/18/21 02:22 01/18/21 03:01 Temperature Pulse Rate Respiratory Rate Blood Pressure Pulse Oximetry 93 93 90 01/18/21 04:00 Temperature 98.1 F Pulse Rate 84 Respiratory Rate 22 H Blood Pressure 160/89 H Pulse Oximetry 93 Intake/Output Intake/Output: Intake & Output 01/15/21 01/16/21 01/17/21 01/18/21 23:59 23:59 23:59 23:59 Intake Total 1000 1240 100 Output Total 1700 700 850 Balance 1000 460 -700 -750 Meds/Results Medications: Active Medications Generic Name Dose Route Start Last Admin Trade Name Freq PRN Reason Stop Dose Admin Acetaminophen 650 mg 01/17/21 17:24 01/17/21 17:46 Acetaminophen 325 Mg Tablet PO 650 mg Q6H PRN Administration Mild Pain (1-3) or Fever Albuterol 2 puff 01/16/21 01:42 Albuterol Sulfate (*Sp) Aerosol 1 Puff INHALATION Q6HRT PRN Shortness Of Breath Aspirin 325 mg 01/18/21 08:00 Aspirin 325 Mg Tablet PO DAILY@0800 [facility] Dextrose 12.5 gm 01/16/21 01:54 Dextrose 50% 25 Gm/50 Ml Syringe IV PUSH PRN PRN Hypoglyc
[2021-01-18 08:54] LABS: Glucose Point of Care 197 (65-105)
[2021-01-18] MEDS: PANTOPRAZOLE 40 MG TABLET PO (09:30)
[2021-01-18] MEDS: ENOXAPARIN 40 MG/0.4 ML SYRINGE SUB-Q (09:30)
[2021-01-18] MEDS: ASPIRIN 325 MG TABLET PO (09:30)
[2021-01-18] MEDS: METOPROLOL TARTRATE 25 MG TABLET PO ×2 (09:31→20:31)
[2021-01-18] MEDS: INSULIN HUMAN ISOPHAN/REGULAR 70/30 (*BKC) 100 UNITS/ML 15 UNITS SUB-Q ×2 (09:37→17:43)
--- NOTE | 2021-01-18 12:35 | PM.IMPN ---
Progress Note: A&P Assessment and Plan (1) Pneumonia due to COVID-19 virus: Code(s): U07.1 - COVID-19; J12.82 - Pneumonia due to coronavirus disease 2019 Status: Acute Assessment and Plan: Patient with cough, GI symptoms and SOB. CXR showing patchy bilateral disease. He tested positive for COVID on 01/15. He initially did not require O2 but now on HFNC since overnight. ABG 7.58/29/59 on 4L. Will repeat CXR. Add Remdesivir and Decadron. IS. Schedule Albuterol. (2) Confusion: Code(s): R41.0 - Disorientation, unspecified Status: Acute Assessment and Plan: Patient is alert and more oriented today consistent with delirium. CT brain showing no acute findings. TSH and B12 levels okay. Suspect related to COVID. Related to the urine retention? Continue to monitor (3) Atrial fibrillation with rapid ventricular response: Code(s): I48.91 - Unspecified atrial fibrillation Status: Acute Assessment and Plan: Most likely in response to his COVID pneumonia. [id number] 3 and on Lovenox. He converted on Diltiazem and Metoprolol given in ED. Cardiology has been consulted. He is currently on oral metoprolol. Echo showing EF 65-70% and Grade I diastolic dysfunction. No plans for supervisor intermediates anticoagulation per cardiology. Changed to Lovenox prophylaxis and ASA added per their recommendations. (4) Urine retention: Code(s): R33.9 - Retention of urine, unspecified Status: Acute Assessment and Plan: Patient was found to have urine retention. Lock catheter placed. Will add Flomax. Increase activity level. (5) Type 2 diabetes mellitus without complication: Code(s): E11.9 - Type 2 diabetes mellitus without complications Status: Chronic Assessment and Plan: A1c 7.9. The patient's blood glucose was reviewed on 01/18 Glucose remains well controlled. Continue AccuCheks covering with sliding scale. Hypoglycemia protocol available as needed. Not eating much so glucose lower than expected. Metformin on hold now. Will continue 70/30 at current lower dose and monitor. Continue supplements. Encouraged oral intake. (6) Essential hypertension: Code(s): I10 - Essential (primary) hypertension Status: Chronic Assessment and Plan: Patient's blood pressure was reviewed on 01/18 Blood pressure remains well controlled. Will continue current medications with metoprolol. (7) Mixed hyperlipidemia: Code(s): E78.2 - Mixed hyperlipidemia Status: Chronic Assessment and Plan: Liver enzymes elevated probably related to the virus. Lipitor on hold. CT chest showing hepatic steatosis so elevated levels probably related to this. Liver enzymes still waxing and waning. Check RUQ US. (8) DVT prophylaxis: Code(s): Z29.9 - Encounter for prophylactic measures, unspecified Status: Acute Assessment and Plan: Lovenox Subjective Date/time seen: 01/18/21 12:35 Interval history: 65yo male with DM and HTN here for cough and found to have COVID PNA. More oriented today. Patient feels better. Denies feeling SOB. He became more hypoxic last night requiring now high flow O2. He also was noted to have urine retention with about 1L with Lock placement. Exam Narrative: Exam Narrative: Tm 100.0 98.2 139/77 18 91% HFNC Gen - NARD lying semi-recumbent in bed Chest -faint diffuse inspiratory crackles bilaterally o/w distant BS. Normal respiratory rate. CV - RRR S1/S2. Telemetry showing NSR, no dysrhythmias Abd - Soft, NT/ND, Positive BS Ext - No pedal edema Neuro -awake, groggy but oriented x4 now. No focal weakness. Sits up at the side of the bed under his own power Psych - Nml mood and affect Skin - Warm and dry Objective Data Vital Signs Vital Signs: Vital Signs - 24 hr 01/17/21 13:00 01/17/21 16:00 01/17/21 17:46 Temperature 100.1 F H 100.1 F H Pulse Ra
[2021-01-18 12:41] LABS: Glucose Point of Care 191 (65-105)
[2021-01-18] MEDS: ALBUTEROL SULFATE (*SP) AEROSOL 1 PUFF 2 PUFF INHALATION (16:15)
[2021-01-18 16:43] LABS: Glucose Point of Care 237 (65-105)
--- NOTE | 2021-01-18 17:09 | PM.CNPUL ---
Assessment and Plan Assessment and plan (1) Pneumonia due to COVID-19 virus: Code(s): U07.1 - COVID-19; J12.82 - Pneumonia due to coronavirus disease 2019 Status: Acute Assessment and Plan: Patient with COVID pneumonia diagnosed on 01/15 with worsening oxygenation today on 01/18 and started on dexamethasone 6 mg IV q.6 hours and Remdesivir. I have also ordered convalescent plasma. At this time I do not think there are any other complicating pulmonary issues such as bacterial pneumonia, congestive heart failure, pulmonary emboli that need to be addressed. Will check CXR and BNP in morning (minus 1820 since admission). (2) Respiratory failure with hypoxia: Code(s): J96.91 - Respiratory failure, unspecified with hypoxia Status: Acute Assessment and Plan: Patient with COVID pneumonia and hypoxemic respiratory failure. 01/15 admit to floor 19:00 Room air, sats 100% 01/16 08:00 Room air, sats 93% 01/17 08:00 Room air, sats 92% 01/17 20:00, 3 L NC sats 93% 01/18 00:15, 6 L NC sats 93% 01/18 08:00, high flow 40L and 70% sats 91% 01/18 17:00 high flow 40L and 70% sats 95%. For worsening oxygenation increase high flow NC to 100% and if remains with sats < 90% BiPAP 100% and transfer to ICU and if remains with sats < 90% on BiPAP 100% consider intubation. Will follow with you. History of Present Illness History of Present Illness Consult date: 01/18/21 Requesting physician: Ollie Montesinos MD Reason for consult: hypoxemia and other (COVID) Chief complaint: COVID-19 suspected, atrial fibrillation with RVR Narrative: This is a new pulmonary consult with COVID pneumonia and hypoxemic respiratory failure This is a 65-year-old man with a history of hypertension hyperlipidemia and diabetes who presented on 01/15 with fever and shortness of breath. Patient tested positive for SARS-CoV-2 by RT PCR on 01/15/2021. He was in Afib/RVR. Initial chest x-ray at that time showed patchy bilateral infiltrates. BNP was 168. Patient was saturating 98% on room air on 01/16 but developed beat worsening oxygenation. on 01/17 patient Had a room air blood gas that demonstrated a pH of 7.5 11/06/2053. Patient required 3 L nasal cannula on 01/17 and Today on 01/18 patient required high-flow nasal cannula at 40 L and 70% to maintain saturations at 95%. Earlier today patient was started on dexamethasone 6 mg IV q.day and REMdesivir. I was consulted. 01/18 patient is awake and following simple pump commands but does not know the date or the place. Patient is currently on high-flow nasal cannula at 40 L with 70% oxygen and his saturations are 95%. Patient's respiratory rate is 20 and he is in no respiratory distress. I have ordered convalescent plasma. Echo 01/17 Summary 1. Complete two-dimensional, color flow and Doppler transthoracic echocardiogram is performed. 2. Left ventricular chamber dimension is normal. 3. Ventricular septum is sigmoid shaped. No LVOT obstruction. 4. Left ventricular systolic function is normal, estimated at 65-70%. 5. The left ventricular diastolic function is grade I diastolic dysfunction. 6. E/e' 7 is not elevated. 7. Global longitudinal strain is abnormal at -14.6%. 8. There is mild aortic valve sclerosis. Review of Systems Review of Systems: Narrative: Denies any pain All systems reviewed & are unremarkable except as noted in HPI and below Eyes: Eyes: Reports no additional eye complaints ENT: Reports system reviewed and no additional complaints, except as documented Cardiovascular: Cardiovascular: Reports no additional cardiovascular complaints Respiratory: Respiratory: Reports no additional respiratory complaints Gastrointestinal: Gastrointestinal: Reports no additional gastrointestinal complaints Musculoskeletal: Musculoskeletal: Reports no additional musculoskeletal complaints Integumentary/Breasts: Skin/Breast: Reports system reviewed and no additional com
[2021-01-18] MEDS: TAMSULOSIN HCL 0.4 MG CAPSULE PO (17:42)
[2021-01-18] MEDS: DEXAMETHASONE SOD PHOS INJ 4 MG/ML VIAL 6 MG IV PUSH (17:42)
[2021-01-18] MEDS: REMDESIVIR 200 MG/NS 250 ML 200 MG/250 ML BAG 250 MG IVPB (17:43)
[2021-01-18] MEDS: INSULIN ASPART (*BKC) 100 UNITS/ML SUB-Q (17:48)
--- NOTE | 2021-01-18 19:00 | ADMIMU ---
This patient, Shreyas Ramirez, was admitted to IMU status, and placed in Intensive Care Unit-3. Patient/family oriented to hospital policies and general routines including ID bracelet, bed and alarms, visiting hours, pain management, procedures, bathroom and other care routines, personal items, smoking policy, room service/diet, and visiting hours. Valuables list has been completed. Information on how to activate the Rapid Response Team has been discussed. Patient/Family are encouraged to report perceived risks to care and to ask questions if they do not understand what they are told or what they should do. Report received from DIGNA Huang @ [id number]
[2021-01-18] MEDS: ALBUTEROL SULFATE NEB 2.5 MG/0.5 ML INH INHALATION ×2 (20:31→23:34)
[2021-01-18] MEDS: IPRATROPIUM BR 0.02% INH SOLN 0.5 MG/2.5 ML VIAL INHALATION ×2 (20:31→23:34)
[2021-01-18 22:14] LABS: Glucose Point of Care 258 (65-105)
[2021-01-18] MEDS: INSULIN ASPART (*BKC) 100 UNITS/ML 6 UNITS SUB-Q (22:36)
[2021-01-19] VITALS (26 sets, daily range): BP systolic 112–123; BP diastolic 60–84; PULSE 58–78; RESP 12–20; TEMP 36.5–37; O2SAT 90–98
[2021-01-19] MEDS: IPRATROPIUM BR 0.02% INH SOLN 0.5 MG/2.5 ML VIAL INHALATION ×6 (04:13→23:41)
[2021-01-19] MEDS: ALBUTEROL SULFATE NEB 2.5 MG/0.5 ML INH INHALATION ×6 (04:13→23:41)
[2021-01-19 04:52] LABS: Hematocrit 43.7 % (42.0-52.0); Hemoglobin 14.5 g/dL (14.0-18.0); Mean Corpuscular HGB Conc 33.2 g/dl (32-36); Mean Corpuscular Hemoglobin 27.7 pg (26-34); Mean Corpuscular Volume 83.6 fl (80-100); Mean Platelet Volume 11.9 fl (7.4-10.4); Platelet Count Result 210 k/mm3 (150-375); Red Blood Count 5.23 M/mm3 (4.6-6.20); Red Cell Distribution Width 14.3 % (11.5-14.5); White Blood Count 5.8 K/mm3 (4.5-10.0)
[2021-01-19 05:10] LABS: Alanine Aminotransferase 64 U/L (4-50); Albumin Level 3.6 g/dL (3.5-5.1); Alkaline Phosphatase 72 U/L (38-126); Anion Gap 6 mmol/L (8-16); Aspartate Amino Transferase 87 U/L (17-59); Bilirubin,Total 0.7 mg/dL (0.2-1.3); Blood Urea Nitrogen 18 mg/dL (9-20); Calcium 8.5 mg/dL (8.4-10.2); Carbon Dioxide 30 mmol/L (22-30); Chloride 98 mmol/L (98-107); Estimated CRCL calculation 97 ml/min; Estimated Glomerular Filt Rate > 60; Glucose 249 mg/dL (75-110); Potassium 4.1 mmol/L (3.4-5.0); Sodium 134 mmol/L (137-145)
[2021-01-19 05:14] LABS: NT Pro B Type Natriuretic Pept 76 PG/ML (5-100)
[2021-01-19 05:40] LABS: Hepatitis B Surface Antigen Negative (Negative)
[2021-01-19 05:46] LABS: HAV RESULT Negative (Negative); Hepatitis B Core IgM Result Negative (Negative)
[2021-01-19 05:57] LABS: Hepatitis C Virus Antibody Negative (Negative)
[2021-01-19 08:05] LABS: Glucose Point of Care 263 (65-105)
[2021-01-19] MEDS: ENOXAPARIN 40 MG/0.4 ML SYRINGE SUB-Q (08:32)
[2021-01-19] MEDS: PANTOPRAZOLE 40 MG TABLET PO (08:33)
[2021-01-19] MEDS: ASPIRIN 325 MG TABLET PO (08:33)
[2021-01-19] MEDS: METOPROLOL TARTRATE 25 MG TABLET PO ×2 (08:33→20:20)
[2021-01-19] MEDS: DEXAMETHASONE SOD PHOS INJ 4 MG/ML VIAL 6 MG IV PUSH (08:33)
[2021-01-19] MEDS: INSULIN HUMAN ISOPHAN/REGULAR 70/30 (*BKC) 100 UNITS/ML 15 UNITS SUB-Q (08:34)
[2021-01-19] MEDS: TAMSULOSIN HCL 0.4 MG CAPSULE PO (08:34)
[2021-01-19] MEDS: INSULIN ASPART (*BKC) 100 UNITS/ML SUB-Q (08:34)
--- NOTE | 2021-01-19 09:12 | PM.PNPUL ---
Progress Note: A&P Assessment and Plan (1) Pneumonia due to COVID-19 virus: Code(s): U07.1 - COVID-19; J12.82 - Pneumonia due to coronavirus disease 2019 Status: Acute Assessment and Plan: 01/18 Patient with COVID pneumonia diagnosed on 01/15 with worsening oxygenation today on 01/18 and started on dexamethasone 6 mg IV q.6 hours and Remdesivir. S/P convalescent plasma. At this time I do not think there are any other complicating pulmonary issues such as bacterial pneumonia, congestive heart failure, pulmonary emboli that need to be addressed. Will check CXR and BNP in morning (minus 1820 since admission). 01/19 He feels better but remains hypoxic, Day 2 remdesivir, dexamethasone. CXR stable infiltrates from 01/18. Oxygenation minimal change in last 24 hours. BNP 76. No wheezes decrease albuterol and ipratroprium to Q 6HR. Hes tated he can't lay on stomach as it hurts him. (2) Respiratory failure with hypoxia: Code(s): J96.91 - Respiratory failure, unspecified with hypoxia Status: Acute Assessment and Plan: Patient with COVID pneumonia and hypoxemic respiratory failure. 01/15 admit to floor 19:00 Room air, sats 100% 01/16 08:00 Room air, sats 93% 01/17 08:00 Room air, sats 92% 01/17 20:00, 3 L NC sats 93% 01/18 00:15, 6 L NC sats 93% 01/18 08:00, high flow NC 40L and 70% sats 91% 01/18 17:00, high flow NC 40L and 70% sats 95%. 01/19 08:00, high flow NC 55L and 70% sats 93% For worsening oxygenation increase high flow NC to 100% and if remains with sats < 90% BiPAP 100% and if remains with sats < 90% on BiPAP 100% with high EPAP consider intubation. Will follow with you. Subjective Date/time seen: 01/19/21 09:12 Interval history: This is a 65-year-old man with a history of hypertension hyperlipidemia and diabetes who presented on 01/15 with fever and shortness of breath. Patient tested positive for SARS-CoV-2 by RT PCR on 01/15/2021. He was in Afib/RVR. Initial chest x-ray at that time showed patchy bilateral infiltrates. BNP was 168. Patient was saturating 98% on room air on 01/16 but developed beat worsening oxygenation. on 01/17 patient Had a room air blood gas that demonstrated a pH of 7.5 11/06/2053. Patient required 3 L nasal cannula on 01/17 and Today on 01/18 patient required high-flow nasal cannula at 40 L and 70% to maintain saturations at 95%. Earlier today patient was started on dexamethasone 6 mg IV q.day and REMdesivir. I was consulted. 01/18 patient is awake and following simple pump commands but does not know the date or the place. Patient is currently on high-flow nasal cannula at 40 L with 70% oxygen and his saturations are 95%. Patient's respiratory rate is 20 and he is in no respiratory distress. S/P convalescent plasma. 01/19 Patient is more awake and communicative, he states he is breathing better today, on high flow NC at 55L and 70% with sats 92%. CXR with diffuse infiltrates without change from 01/15. Day 2 remdesivir and dexamethasone. Echo 01/17 Summary 1. Complete two-dimensional, color flow and Doppler transthoracic echocardiogram is performed. 2. Left ventricular chamber dimension is normal. 3. Ventricular septum is sigmoid shaped. No LVOT obstruction. 4. Left ventricular systolic function is normal, estimated at 65-70%. 5. The left ventricular diastolic function is grade I diastolic dysfunction. 6. E/e' 7 is not elevated. 7. Global longitudinal strain is abnormal at -14.6%. 8. There is mild aortic valve sclerosis. Review of Systems Review of Systems: All systems reviewed & are unremarkable except as noted in HPI and below Eyes: Eyes: Reports no additional eye complaints ENT: Reports system reviewed and no additional complaints, except as documented and Reports sinus pressure Cardiovascular: Cardiovascular: Reports no additional cardiovascular complaints Respiratory: Respiratory: Reports as per HPI, Reports cough, Denies hemoptysis, Reports dys
--- NOTE | 2021-01-19 09:18 | PM.PNCARD ---
Progress Note: A&P Assessment and Plan (1) Atrial fibrillation with rapid ventricular response: Code(s): I48.91 - Unspecified atrial fibrillation Status: Acute Assessment and Plan: New onset probably related to Covid pneuomonia. [id number] 3. No recurrence after spontaneously cardioverted. On Lovenox for DVT prophylaxis. On Aspirin 325 mg daily. On Metoprolol 25 mg PO every 12 hours to decrease risk of recurrence. Echo 01/17/21 EF 65-70%, grade I diastolic dysfunction (E/e' 7). Echo is essentially normal. He has been stable for last 3 days from cardiology standpoint. Will sign off. (2) Essential hypertension: Code(s): I10 - Essential (primary) hypertension Status: Chronic Assessment and Plan: Stable. (3) Mixed hyperlipidemia: Code(s): E78.2 - Mixed hyperlipidemia Status: Chronic Assessment and Plan: Hold off on statin due to transaminitis. (4) Type 2 diabetes mellitus without complication: Code(s): E11.9 - Type 2 diabetes mellitus without complications Status: Chronic Assessment and Plan: Management as per hospitalist. (5) Confusion: Code(s): R41.0 - Disorientation, unspecified Status: Acute Assessment and Plan: Mental status improved this morning. Probably delirium related to infection. (6) COVID-19: Code(s): U07.1 - COVID-19 Status: Acute Assessment and Plan: Management as per hospitalist. Subjective Date/time seen: 01/19/21 09:18 He was transferred to ICU yesterday due to hypoxia. Currently denies chest pain or sob. He is alert and oriented x 3 this morning. Exam Const: General: cooperative, healthy appearing, comfortable and alert; No no acute distress or confusion Resp: Auscultation: clear to auscultation bilaterally, no crackles, no rales, no rhonchi and no wheezes Cardio: Rate: regular rate Rhythm: regular rhythm Heart sounds: no murmurs Peripheral pulses: dorsalis pedis present GI: GI Palp: No abdominal tenderness and Yes Soft to palpation Neuro: General: oriented to person, No oriented to place and No oriented to time Extrem: Right lower extremity: no edema Left lower extremity: no edema Objective Data Vital Signs Vital Signs: Vital Signs - 24 hr 01/18/21 09:31 01/18/21 12:00 01/18/21 16:00 Temperature 98.3 F 98.7 F Pulse Rate 86 73 78 Respiratory Rate 20 19 Blood Pressure 115/73 118/64 Pulse Oximetry 97 92 01/18/21 19:11 01/18/21 19:15 01/18/21 19:37 Temperature Pulse Rate 85 87 87 Respiratory Rate 19 17 25 H Blood Pressure 131/89 134/79 Pulse Oximetry 92 92 86 L 01/18/21 19:44 01/18/21 19:54 01/18/21 20:00 Temperature Pulse Rate 86 85 86 Respiratory Rate 22 H 22 H 21 H Blood Pressure Pulse Oximetry 88 L 91 98 01/18/21 20:03 01/18/21 20:31 01/18/21 20:34 Temperature 100.2 F H Pulse Rate 85 84 88 Respiratory Rate 21 H 21 H Blood Pressure Pulse Oximetry 98 01/18/21 21:47 01/18/21 22:03 01/18/21 23:03 Temperature 99.6 F 99.2 F 98.5 F Pulse Rate 80 79 69 Respiratory Rate 23 H 26 H 19 Blood Pressure 133/71 118/71 118/65 Pulse Oximetry 98 96 99 01/18/21 23:34 01/18/21 23:40 01/18/21 23:43 Temperature 98.5 F Pulse Rate 64 65 63 Respiratory Rate 20 20 20 Blood Pressure 118/65 Pulse Oximetry 99 98 01/19/21 00:00 01/19/21 03:31 01/19/21 04:00 Temperature 98.6 F Pulse Rate 64 58 L 59 L Respiratory Rate 19 19 17 Blood Pressure 122/66 113/66 Pulse Oximetry 97 93 95 01/19/21 04:13 01/19/21 04:20 01/19/21 04:21 Temperature Pulse Rate 61 65 60 Respiratory Rate 20 18 20 Blood Pressure Pulse Oximetry 97 01/19/21 04:48 01/19/21 07:50 01/19/21 07:51 Temperature Pulse Rate 62 69 69 Respiratory Rate 14 13 13 Blood Pressure Pulse Oximetry 96 90 01/19/21 07:59 01/19/21 08:00 01/19/21 08:33 Temperature 97.9 F Pulse Rate 70 71 73 Respiratory Rate 13 13 Blood Pressure 120/84
[2021-01-19] MEDS: REMDESIVIR 100 MG/NS 250 ML 100 MG/250 ML BAG 250 MG IVPB (10:21)
--- NOTE | 2021-01-19 14:11 | PC.NURSE ---
Updated girlfriend via telephone on patient status. During Am assessment patient stated ok to talk to girlfriend about plan of care
--- NOTE | 2021-01-19 14:37 | PC.NURSE ---
Dr. Montesinos notified of blood glucose, orders given.
--- NOTE | 2021-01-19 14:47 | PM.IMPN ---
Progress Note: A&P Assessment and Plan (1) Pneumonia due to COVID-19 virus: Code(s): U07.1 - COVID-19; J12.82 - Pneumonia due to coronavirus disease 2019 Status: Acute Assessment and Plan: On admission, patient with cough, GI symptoms and SOB. CXR showing patchy bilateral disease. He tested positive for COVID on 01/15. He initially did not require O2 but quickly developed hypoxia on the tariff supervisor hours on 01/18 with ABG 7.58/29/59 on 4L. Remdesivir and Decadron started 01/18. Pulmonary consulted and Convalescent Plasma given 01/18. Continue Albuterol and Atrovent. Wean O2 as toelrated. (2) Confusion: Code(s): R41.0 - Disorientation, unspecified Status: Acute Assessment and Plan: Patient is alert and more oriented today consistent with delirium. CT brain showing no acute findings. TSH and B12 levels okay. Suspect related to COVIDand/or from the urine retention. Continue to monitor (3) Atrial fibrillation with rapid ventricular response: Code(s): I48.91 - Unspecified atrial fibrillation Status: Acute Assessment and Plan: AFib most likely in response to his COVID pneumonia. [id number] 3 and was on Lovenox. He converted to NSR with Diltiazem and Metoprolol given in ED. Cardiology was consulted. He is currently on oral metoprolol. Echo showing EF 65-70% and Grade I diastolic dysfunction. 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 We changed to Lovenox prophylaxis and ASA added per their recommendations. Maintaining NSR. Continue tele. (4) Urine retention: Code(s): R33.9 - Retention of urine, unspecified Status: Acute Assessment and Plan: Patient was found to have urine retention. Lock catheter placed. Flomax added. Increase activity level. Voiding trial toward the end of his hospital course. (5) Type 2 diabetes mellitus without complication: Code(s): E11.9 - Type 2 diabetes mellitus without complications Status: Chronic Assessment and Plan: A1c 7.9. The patient's blood glucose was reviewed on 01/19 Glucose much higher now related to the fact the patient is eating better. Continue AccuCheks covering with sliding scale. Hypoglycemia protocol available as needed. Metformin on hold for now. Will continue 70/30 but advance dose and monitor. Continue supplements. (6) Essential hypertension: Code(s): I10 - Essential (primary) hypertension Status: Chronic Assessment and Plan: Patient's blood pressure was reviewed on 01/19 Blood pressure remains well controlled. Will continue current medications with metoprolol. (7) Mixed hyperlipidemia: Code(s): E78.2 - Mixed hyperlipidemia Status: Chronic Assessment and Plan: Liver enzymes elevated probably related to the virus. Lipitor on hold. CT chest showing hepatic steatosis so elevated levels probably related to this. RUQ confirms hepatic steatosis o/w nothing acute. Liver enzymes still waxing and waning. Follow (8) DVT prophylaxis: Code(s): Z29.9 - Encounter for prophylactic measures, unspecified Status: Acute Assessment and Plan: Lovenox Subjective Date/time seen: 01/19/21 14:47 Interval history: 65yo male with DM and HTN here for cough and found to have COVID PNA. Patient feels much better. SOB improved. No CP. Eating better. Moved to ICU by pulmonary given how quickly his hypoxia worsened. Exam Narrative: Exam Narrative: Tm 100.2 98.4 113/60 72 15 97% HFNC Gen - NARD lying semi-recumbent in bed Chest - few basilar inspiratory crackles o/w distant BS, nml RR, no conversational dyspnea. CV - RRR S1/S2. Telemetry showing no dysrhythmias Abd - Soft, NT/ND, Positive BS Ext - No pedal edema Neuro - awake, alert and appropriate. Psych - Nml mood and affect Skin - Warm and dry Objective Data Vital Signs Vital Signs: Vital Signs - 24 hr 01/18/21 16
[2021-01-19 14:50] LABS: Glucose Point of Care 420 (65-105)
[2021-01-19] MEDS: INSULIN ASPART (*BKC) 100 UNITS/ML 10 UNITS SUB-Q ×2 (14:50→19:46)
[2021-01-19 16:11] LABS: Glucose Point of Care 397 (65-105)
[2021-01-19] MEDS: INSULIN HUMAN ISOPHAN/REGULAR 70/30 (*BKC) 100 UNITS/ML 20 UNITS SUB-Q (18:33)
--- NOTE | 2021-01-19 18:35 | PC.NURSE ---
Dr. Montesinos notified of blood glucose level.
[2021-01-19 18:38] LABS: Glucose Point of Care 454 (65-105)
[2021-01-19] MEDS: INSULIN GLARGINE (*BKC) 100 UNITS/ML 19 UNITS SUB-Q (20:19)
[2021-01-19] MEDS: MELATONIN 5 MG TABLET PO (20:19)
[2021-01-19 21:38] LABS: Glucose Point of Care 363 (65-105)
[2021-01-19] MEDS: TEMAZEPAM (*CRX) 15 MG CAPSULE PO (23:06)
[2021-01-19 23:15] LABS: Glucose Point of Care 263 (65-105)
[2021-01-20] VITALS (29 sets, daily range): BP systolic 109–136; BP diastolic 77–84; PULSE 52–71; RESP 10–20; TEMP 35.7–36.6; O2SAT 90–97
[2021-01-20] MEDS: ALBUTEROL SULFATE NEB 2.5 MG/0.5 ML INH INHALATION ×6 (04:45→23:53)
[2021-01-20] MEDS: IPRATROPIUM BR 0.02% INH SOLN 0.5 MG/2.5 ML VIAL INHALATION ×6 (04:45→23:54)
[2021-01-20 05:38] LABS: Alanine Aminotransferase 61 U/L (4-50); Estimated CRCL calculation 113 ml/min; Estimated Glomerular Filt Rate > 60
[2021-01-20 06:00] LABS: Glucose Point of Care 201 (65-105)
[2021-01-20] MEDS: ASPIRIN 325 MG TABLET PO (08:00)
[2021-01-20] MEDS: ENOXAPARIN 40 MG/0.4 ML SYRINGE SUB-Q (08:00)
[2021-01-20] MEDS: TAMSULOSIN HCL 0.4 MG CAPSULE PO (08:00)
[2021-01-20] MEDS: DEXAMETHASONE SOD PHOS INJ 4 MG/ML VIAL 6 MG IV PUSH (08:00)
[2021-01-20] MEDS: METOPROLOL TARTRATE 25 MG TABLET PO ×2 (08:00→20:12)
[2021-01-20] MEDS: PANTOPRAZOLE 40 MG TABLET PO (08:00)
[2021-01-20 08:11] LABS: Glucose Point of Care 215 (65-105)
--- NOTE | 2021-01-20 08:14 | PM.PNPUL ---
Progress Note: A&P Assessment and Plan (1) Pneumonia due to COVID-19 virus: Code(s): U07.1 - COVID-19; J12.82 - Pneumonia due to coronavirus disease 2019 Status: Acute Assessment and Plan: 01/18 Patient with COVID pneumonia diagnosed on 01/15 with worsening oxygenation today on 01/18 and started on dexamethasone 6 mg IV q.6 hours and Remdesivir. S/P convalescent plasma. At this time I do not think there are any other complicating pulmonary issues such as bacterial pneumonia, congestive heart failure, pulmonary emboli that need to be addressed. Will check CXR and BNP in morning (minus 1820 since admission). 01/19 He feels better but remains hypoxic, Day 2 remdesivir, dexamethasone. CXR stable infiltrates from 01/18. Oxygenation minimal change in last 24 hours. BNP 76. No wheezes decrease albuterol and ipratroprium to Q 6HR. He stated he can't lay on stomach as it hurts him. 01/20 Slept last night, states breathing slowly improved, oxygenation stable over last 48 hours. No wheezes. Days 3 remdesivir and dexamethasone. At this time there are no additional cardiopulmonary issues complicating his severe COVID pneumonia. Recommend 10 days remdesivir and dexamethsone unless he is on room air before then. Wean FIO2 to maintain sats 90-94% OT and PT as tolerated Eventual O2 assessment at day and night to determine oxygen needs and CXR prior to discharge serve as baseline for future. Will sign off, call with any questions. (2) Respiratory failure with hypoxia: Code(s): J96.91 - Respiratory failure, unspecified with hypoxia Status: Acute Assessment and Plan: Patient with COVID pneumonia and hypoxemic respiratory failure. 01/15 admit to floor 19:00 Room air, sats 100% 01/16 08:00 Room air, sats 93% 01/17 08:00 Room air, sats 92% 01/17 20:00, 3 L NC sats 93% 01/18 00:15, 6 L NC sats 93% 01/18 08:00, high flow NC 40L and 70% sats 91% 01/18 17:00, high flow NC 40L and 70% sats 95%. 01/19 08:00, high flow NC 55L and 70% sats 93% 01/20 07:30, high flow NC 55L and 67% sats 95%. Oxygenation stable for 48 hours wean as tolerated to keep sats 90-94%. For worsening oxygenation increase high flow NC to 100% and if remains with sats < 90% BiPAP 100% and if remains with sats < 90% on BiPAP 100% with high EPAP consider intubation. Subjective Date/time seen: 01/20/21 08:14 Interval history: This is a 65-year-old man with a history of hypertension hyperlipidemia and diabetes who presented on 01/15 with fever and shortness of breath. Patient tested positive for SARS-CoV-2 by RT PCR on 01/15/2021. He was in Afib/RVR. Initial chest x-ray at that time showed patchy bilateral infiltrates. BNP was 168. Patient was saturating 98% on room air on 01/16 but developed beat worsening oxygenation. on 01/17 patient Had a room air blood gas that demonstrated a pH of 7.5 11/06/2053. Patient required 3 L nasal cannula on 01/17 and Today on 01/18 patient required high-flow nasal cannula at 40 L and 70% to maintain saturations at 95%. Earlier today patient was started on dexamethasone 6 mg IV q.day and REMdesivir. I was consulted. 01/18 patient is awake and following simple pump commands but does not know the date or the place. Patient is currently on high-flow nasal cannula at 40 L with 70% oxygen and his saturations are 95%. Patient's respiratory rate is 20 and he is in no respiratory distress. S/P convalescent plasma. 01/19 Patient is more awake and communicative, he states he is breathing better today, on high flow NC at 55L and 70% with sats 92%. CXR with diffuse infiltrates without change from 01/15. Day 2 remdesivir and dexamethasone. 01/20 Slept last night, states breathing slowly improved, On high flow NC at 55L and 67% FIO2 with sats 95%. Days 3 remdesivir and dexamethasone. Echo 01/17 Summary 1. Complete two-dimensional, color flow and Doppler transthoracic echocardiogram is performed. 2. Left ventricular chamber dimension is n
[2021-01-20] MEDS: REMDESIVIR 100 MG/NS 250 ML 100 MG/250 ML BAG 250 MG IVPB (08:57)
[2021-01-20] MEDS: INSULIN ASPART (*BKC) 100 UNITS/ML SUB-Q ×3 (08:59→17:56)
[2021-01-20] MEDS: INSULIN HUMAN ISOPHAN/REGULAR 70/30 (*BKC) 100 UNITS/ML 20 UNITS SUB-Q ×2 (08:59→17:55)
--- NOTE | 2021-01-20 11:39 | PM.IMPN ---
Progress Note: A&P Assessment and Plan (1) Pneumonia due to COVID-19 virus: Code(s): U07.1 - COVID-19; J12.82 - Pneumonia due to coronavirus disease 2019 Status: Acute Assessment and Plan: On admission, patient with cough, GI symptoms and SOB. CXR showing patchy bilateral disease. He tested positive for COVID on 01/15. He initially did not require O2 but quickly developed hypoxia on the airport operations specialist hours on 01/18 with ABG 7.58/29/59 on 4L. Remdesivir and Decadron started 01/18. Pulmonary consulted and Convalescent Plasma given 01/18. Continue Albuterol and Atrovent. Wean O2 as tolerated. (2) Confusion: Code(s): R41.0 - Disorientation, unspecified Status: Acute Assessment and Plan: Patient's delirium related to COVID and/or from the urine retention. Patient is alert and more oriented today. CT brain showing no acute findings. TSH and B12 levels okay. Continue to monitor (3) Atrial fibrillation with rapid ventricular response: Code(s): I48.91 - Unspecified atrial fibrillation Status: Acute Assessment and Plan: AFib most likely in response to his COVID pneumonia. [id number] 3 and was on Lovenox. He converted to NSR with Diltiazem and Metoprolol given in ED. Cardiology was consulted. He is currently on oral metoprolol. Echo showing EF 65-70% and Grade I diastolic dysfunction. No plans for director of quality anticoagulation per cardiology. We changed to Lovenox prophylaxis and ASA added per their recommendations. Maintaining NSR. Continue tele. (4) Urine retention: Code(s): R33.9 - Retention of urine, unspecified Status: Acute Assessment and Plan: Patient was found to have urine retention. Cook catheter placed. Flomax added. Increase activity level. Voiding trial toward the end of his hospital course. (5) Type 2 diabetes mellitus without complication: Code(s): E11.9 - Type 2 diabetes mellitus without complications Status: Chronic Assessment and Plan: A1c 7.9. The patient's blood glucose was reviewed on 01/20 Glucose much higher now related to the fact the patient is eating better and steroids. Continue AccuCheks covering with sliding scale. Hypoglycemia protocol available as needed. Metformin on hold for now. Lantus added last night and will advance dose. Will continue 70/30. (6) Essential hypertension: Code(s): I10 - Essential (primary) hypertension Status: Chronic Assessment and Plan: Patient's blood pressure was reviewed on 01/20 Blood pressure remains well controlled. Will continue current medications with metoprolol. (7) Mixed hyperlipidemia: Code(s): E78.2 - Mixed hyperlipidemia Status: Chronic Assessment and Plan: Liver enzymes elevated probably related to the virus. Lipitor on hold. CT chest showing hepatic steatosis so elevated levels probably related to this. RUQ confirms hepatic steatosis o/w nothing acute. Liver enzymes still waxing and waning. Follow (8) DVT prophylaxis: Code(s): Z29.9 - Encounter for prophylactic measures, unspecified Status: Acute Assessment and Plan: Lovenox Subjective Date/time seen: 01/20/21 11:39 Interval history: 65yo male with DM and HTN here for cough and found to have COVID PNA. Patient feels well. Slept well. No complaints today. Eating better. SOB improved. No CP. Exam Narrative: Exam Narrative: AF 96.2 129/84 57 15 95% HFNC Gen - NARD lying semi-recumbent in bed Chest - distant BS with few crackles CV - RRR S1/S2. Telemetry showing no dysrhythmias Abd - Soft, NT/ND, Positive BS - Cook secured draining clear orange-yellow urine Ext - No pedal edema Psych - Nml mood and affect Skin - Warm and dry Objective Data Vital Signs Vital Signs: Vital Signs - 24 hr 01/19/21 12:00 01/19/21 12:50 01/19/21 13:06 Temperature 98.4 F Pulse Rate 72 73 73 Respiratory
[2021-01-20 16:32] LABS: Glucose Point of Care 307 (65-105)
[2021-01-20] MEDS: INSULIN GLARGINE (*BKC) 100 UNITS/ML 30 UNITS SUB-Q (20:11)
[2021-01-20 20:27] LABS: Glucose Point of Care 360 (65-105)
[2021-01-20] MEDS: MELATONIN 5 MG TABLET PO (21:55)
[2021-01-21] VITALS (34 sets, daily range): BP systolic 113–151; BP diastolic 61–91; PULSE 51–95; RESP 13–24; TEMP 36.2–37.1; O2SAT 90–98
[2021-01-21 04:06] LABS: Hematocrit 39.4 % (42.0-52.0); Hemoglobin 13.4 g/dL (14.0-18.0); Mean Corpuscular Hemoglobin 27.6 pg (26-34); Mean Corpuscular Volume 81.2 fl (80-100); Platelet Count Result 270 k/mm3 (150-375); Red Blood Count 4.85 M/mm3 (4.6-6.20); White Blood Count 8.1 K/mm3 (4.5-10.0)
[2021-01-21 04:21] LABS: Alanine Aminotransferase 57 U/L (4-50); Albumin Level 3.2 g/dL (3.5-5.1); Alkaline Phosphatase 62 U/L (38-126); Anion Gap 6 mmol/L (8-16); Aspartate Amino Transferase 54 U/L (17-59); Bilirubin,Total 0.5 mg/dL (0.2-1.3); Blood Urea Nitrogen 21 mg/dL (9-20); CRP 4.9 mg/dL (<1.0); Calcium 8.7 mg/dL (8.4-10.2); Carbon Dioxide 29 mmol/L (22-30); Chloride 103 mmol/L (98-107); Estimated CRCL calculation 98 ml/min; Estimated Glomerular Filt Rate > 60; Glucose 208 mg/dL (75-110); Lactate Dehydrogenase 758 U/L (313-618); Magnesium 1.9 mg/dL (1.6-2.3); Phosphorus 3.3 mg/dL (2.5-4.5); Potassium 3.2 mmol/L (3.4-5.0); Sodium 138 mmol/L (137-145)
[2021-01-21] MEDS: ALBUTEROL SULFATE NEB 2.5 MG/0.5 ML INH INHALATION ×5 (04:52→20:07)
[2021-01-21] MEDS: IPRATROPIUM BR 0.02% INH SOLN 0.5 MG/2.5 ML VIAL INHALATION ×5 (04:52→20:07)
[2021-01-21 05:35] LABS: Glucose Point of Care 295 (65-105)
[2021-01-21] MEDS: ENOXAPARIN 40 MG/0.4 ML SYRINGE SUB-Q (08:02)
[2021-01-21] MEDS: TAMSULOSIN HCL 0.4 MG CAPSULE PO (08:02)
[2021-01-21] MEDS: METOPROLOL TARTRATE 25 MG TABLET PO ×2 (08:02→19:59)
[2021-01-21] MEDS: PANTOPRAZOLE 40 MG TABLET PO (08:02)
[2021-01-21] MEDS: ASPIRIN 325 MG TABLET PO (08:02)
[2021-01-21] MEDS: DEXAMETHASONE SOD PHOS INJ 4 MG/ML VIAL 6 MG IV PUSH (08:03)
[2021-01-21 08:17] LABS: Glucose Point of Care 101 (65-105)
[2021-01-21] MEDS: INSULIN HUMAN ISOPHAN/REGULAR 70/30 (*BKC) 100 UNITS/ML 20 UNITS SUB-Q ×2 (08:57→17:36)
[2021-01-21] MEDS: POTASSIUM CHLORIDE 20 MEQ TABLET 40 MEQ PO (08:57)
[2021-01-21] MEDS: REMDESIVIR 100 MG/NS 250 ML 100 MG/250 ML BAG 250 MG IVPB (09:39)
[2021-01-21] MEDS: INSULIN ASPART (*BKC) 100 UNITS/ML SUB-Q ×2 (13:31→17:33)
--- NOTE | 2021-01-21 14:13 | PM.IMPN ---
Progress Note: A&P Assessment and Plan (1) Pneumonia due to COVID-19 virus: Code(s): U07.1 - COVID-19; J12.82 - Pneumonia due to coronavirus disease 2019 Status: Acute Assessment and Plan: On admission, patient with cough, GI symptoms and SOB. CXR showing patchy bilateral disease. He tested positive for COVID on 01/15. 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 Remdesivir and Decadron started 01/18. Pulmonary consulted and Convalescent Plasma given 01/18. Continue Albuterol and Atrovent. Wean O2 as tolerated. (2) Confusion: Code(s): R41.0 - Disorientation, unspecified Status: Acute Assessment and Plan: Patient's delirium related to COVID and/or from the urine retention. Patient is alert and more oriented today. CT brain showing no acute findings. TSH and B12 levels okay. Continue to monitor (3) Atrial fibrillation with rapid ventricular response: Code(s): I48.91 - Unspecified atrial fibrillation Status: Acute Assessment and Plan: AFib most likely in response to his COVID pneumonia. [id number] 3 and was on Lovenox. He converted to NSR with Diltiazem and Metoprolol given in ED. Cardiology was consulted. He is currently on oral metoprolol. Echo showing EF 65-70% and Grade I diastolic dysfunction. No plans for em physician anticoagulation per cardiology. We changed to Lovenox prophylaxis and ASA added per their recommendations. Maintaining NSR. Continue tele. (4) Urine retention: Code(s): R33.9 - Retention of urine, unspecified Status: Acute Assessment and Plan: Patient was found to have urine retention. Lock catheter placed. Flomax added. Increase activity level. Voiding trial toward the end of his hospital course. (5) Type 2 diabetes mellitus without complication: Code(s): E11.9 - Type 2 diabetes mellitus without complications Status: Chronic Assessment and Plan: A1c 7.9. The patient's blood glucose was reviewed on 01/21 Glucose much higher now related to the fact the patient is eating better and steroids. Continue AccuCheks covering with sliding scale. Hypoglycemia protocol available as needed. Metformin on hold for now. Lantus added last night and will advance dose again. Will continue 70/30. (6) Essential hypertension: Code(s): I10 - Essential (primary) hypertension Status: Chronic Assessment and Plan: Patient's blood pressure was reviewed on 01/21 Blood pressure remains well controlled. Will continue current medications with metoprolol. (7) Mixed hyperlipidemia: Code(s): E78.2 - Mixed hyperlipidemia Status: Chronic Assessment and Plan: Liver enzymes elevated probably related to the virus. Lipitor on hold. CT chest showing hepatic steatosis so elevated levels probably related to this. RUQ confirms hepatic steatosis o/w nothing acute. Liver enzymes still waxing and waning. Follow. (8) DVT prophylaxis: Code(s): Z29.9 - Encounter for prophylactic measures, unspecified Status: Acute Assessment and Plan: Lovenox Subjective Date/time seen: 01/21/21 14:13 Interval history: 65yo male with DM and HTN here for cough and found to have COVID PNA. Patient was up to the chair yesterday. He was on 50 L and 50% yesterday but had to be increased to 60% overnight. No complaints except for back pain. No chest pain or abdominal pain. Minimal cough. Exam Narrative: Exam Narrative: AF 98.8 113/91 63 20 94% HFNC Gen - NARD sitting up in chair Chest - bibasilar inspiratory crackles. CV - RRR S1/S2. Telemetry showing no dysrhythmias Abd - Soft, NT/ND, Positive BS - Lock secured draining clear orange-yellow urine Ext - No pedal edema Psych - Nml mood and affect Skin - Warm and dry Objective Data Vital Signs Vital Signs: Vital Signs - 24 h
[2021-01-21 14:16] LABS: Glucose Point of Care 305 (65-105)
--- NOTE | 2021-01-21 16:39 | PC.NURSE ---
This patient, Shreyas Ramirez, was transferred to [ [id number]] on 01/21/21 at 1639. Personal belongings sent with patient. Report given to [DIGNA Foster @ [phone] ]. Appropriate documentation sent with patient.
[2021-01-21 17:25] LABS: Glucose Point of Care 319 (65-105)
[2021-01-21] MEDS: MELATONIN 5 MG TABLET PO (19:59)
[2021-01-21] MEDS: INSULIN GLARGINE (*BKC) 100 UNITS/ML 35 UNITS SUB-Q (19:59)
[2021-01-21 20:14] LABS: Glucose Point of Care 375 (65-105)
[2021-01-22] VITALS (25 sets, daily range): BP systolic 108–125; BP diastolic 50–74; PULSE 46–75; RESP 16–20; TEMP 36.2–36.9; O2SAT 92–99
--- NOTE | 2021-01-22 02:31 | PCRCNOTE ---
Window of time for administration has passed. See next scheduled administration.
[2021-01-22] MEDS: ALBUTEROL SULFATE NEB 2.5 MG/0.5 ML INH INHALATION ×5 (03:31→20:58)
[2021-01-22] MEDS: IPRATROPIUM BR 0.02% INH SOLN 0.5 MG/2.5 ML VIAL INHALATION ×5 (03:31→20:58)
[2021-01-22 04:51] LABS: Alanine Aminotransferase 62 U/L (4-50); Estimated CRCL calculation 96 ml/min; Estimated Glomerular Filt Rate > 60
[2021-01-22 08:08] LABS: Glucose Point of Care 112 (65-105)
[2021-01-22] MEDS: REMDESIVIR 100 MG/NS 250 ML 100 MG/250 ML BAG 250 MG IVPB (10:22)
[2021-01-22] MEDS: PANTOPRAZOLE 40 MG TABLET PO (10:23)
[2021-01-22] MEDS: DEXAMETHASONE SOD PHOS INJ 4 MG/ML VIAL 6 MG IV PUSH (10:23)
[2021-01-22] MEDS: TAMSULOSIN HCL 0.4 MG CAPSULE PO (10:23)
[2021-01-22] MEDS: ASPIRIN 325 MG TABLET PO (10:24)
[2021-01-22] MEDS: METOPROLOL TARTRATE 25 MG TABLET PO ×2 (10:24→20:56)
[2021-01-22] MEDS: ENOXAPARIN 40 MG/0.4 ML SYRINGE SUB-Q (10:24)
[2021-01-22] MEDS: INSULIN HUMAN ISOPHAN/REGULAR 70/30 (*BKC) 100 UNITS/ML 20 UNITS SUB-Q ×2 (10:36→16:50)
[2021-01-22 12:43] LABS: Glucose Point of Care 199 (65-105)
--- NOTE | 2021-01-22 15:00 | PM.IMPN ---
Progress Note: A&P Assessment and Plan (1) Pneumonia due to COVID-19 virus: Code(s): U07.1 - COVID-19; J12.82 - Pneumonia due to coronavirus disease 2019 Status: Acute Assessment and Plan: On admission, patient with cough, GI symptoms and SOB. CXR showing patchy bilateral disease. He tested positive for COVID on 01/15. He initially did not require O2 but quickly developed hypoxia on the quantitative associate hours on 01/18 with ABG 7.58/29/59 on 4L. Remdesivir and Decadron started 01/18. Pulmonary consulted and Convalescent Plasma given 01/18. Continue Albuterol and Atrovent. Wean O2 as tolerated. Home O2 evaluation tomorrow. (2) Confusion: Code(s): R41.0 - Disorientation, unspecified Status: Acute Assessment and Plan: Patient's delirium related to COVID and/or from the urine retention. Patient is alert and more oriented today. CT brain showing no acute findings. TSH and B12 levels okay. Continue to monitor (3) Atrial fibrillation with rapid ventricular response: Code(s): I48.91 - Unspecified atrial fibrillation Status: Acute Assessment and Plan: AFib most likely in response to his COVID pneumonia. [id number] 3 and was on Lovenox. He converted to NSR with Diltiazem and Metoprolol given in ED. Cardiology was consulted. He is currently on oral metoprolol. Echo showing EF 65-70% and Grade I diastolic dysfunction. No plans for shelter anticoagulation per cardiology. We changed to Lovenox prophylaxis and ASA added per their recommendations. Maintaining NSR. Continue tele. Continue metoprolol at current dose. (4) Urine retention: Code(s): R33.9 - Retention of urine, unspecified Status: Acute Assessment and Plan: Patient was found to have urine retention. Cook catheter placed. Flomax added. Remove Cook to see if patimichaeln can void on his own. (5) Type 2 diabetes mellitus without complication: Code(s): E11.9 - Type 2 diabetes mellitus without complications Status: Chronic Assessment and Plan: A1c 7.9. The patient's blood glucose was reviewed on 01/22 Glucose much higher last night but better this morning with the Lantus. Elevated glucose related to him eating better and steroids. Continue AccuCheks covering with sliding scale. Hypoglycemia protocol available as needed. Resume Metformin. Contineu Lantus while on steroids. Will continue 70/30. (6) Essential hypertension: Code(s): I10 - Essential (primary) hypertension Status: Chronic Assessment and Plan: Patient's blood pressure was reviewed on 01/22 Blood pressure remains well controlled. Will continue current medications with metoprolol. (7) Mixed hyperlipidemia: Code(s): E78.2 - Mixed hyperlipidemia Status: Chronic Assessment and Plan: Liver enzymes elevated probably related to the virus. Lipitor on hold. CT chest showing hepatic steatosis so elevated levels probably related to this. RUQ confirms hepatic steatosis o/w nothing acute. Liver enzymes still waxing and waning. Resume lipitor (8) DVT prophylaxis: Code(s): Z29.9 - Encounter for prophylactic measures, unspecified Status: Acute Assessment and Plan: Lovenox Subjective Date/time seen: 01/22/21 15:00 Interval history: 65yo male with DM and HTN here for cough and found to have COVID PNA. Patient feels well. No CP. SOB better. Eating very good. He has had a hx of being home with Cook after kidney stones. Exam Narrative: Exam Narrative: AF 98.5 125/68 62 18 95% 7L Gen - NARD Chest - Improved air exchange; bibasilar inspiratory crackles. CV - RRR S1/S2. Telemetry showing no dysrhythmias but mildly bradycardic when he sleeps Abd - Soft, NT/ND, Positive BS - Cook secured draining clear yellow urine Ext - No pedal edema Psych - Nml mood and affect Skin - Warm and dry Objective Data Vital Signs Vital Sign
[2021-01-22 16:30] LABS: Glucose Point of Care 341 (65-105)
[2021-01-22] MEDS: INSULIN ASPART (*BKC) 100 UNITS/ML SUB-Q (16:51)
[2021-01-22] MEDS: metFORMIN HCL 500 MG TABLET 1000 MG PO (17:31)
[2021-01-22 20:17] LABS: Glucose Point of Care 310 (65-105)
[2021-01-22] MEDS: INSULIN GLARGINE (*BKC) 100 UNITS/ML 35 UNITS SUB-Q (20:56)
[2021-01-22] MEDS: MELATONIN 5 MG TABLET PO (20:56)
[2021-01-23] VITALS (25 sets, daily range): BP systolic 106–142; BP diastolic 63–94; PULSE 48–99; RESP 16–20; TEMP 36.2–37.2; O2SAT 90–99
[2021-01-23] MEDS: IPRATROPIUM BR 0.02% INH SOLN 0.5 MG/2.5 ML VIAL INHALATION ×5 (01:53→15:52)
[2021-01-23] MEDS: ALBUTEROL SULFATE NEB 2.5 MG/0.5 ML INH INHALATION ×5 (01:53→15:52)
[2021-01-23 05:16] LABS: Basophils Percent Auto 0.2 % (0.2-1.2); Eosinophils Absolute Auto 0.2 K/mm3 (0-0.3); Eosinophils Percent Auto 1.5 % (0-4.4); Hematocrit 38.8 % (42.0-52.0); Hemoglobin 13.1 g/dL (14.0-18.0); Immature Granulocyte Absolute 0.56 K/mm3 (0.00-0.031); Immature Granulocyte Percent A 5.8 % (0-0.5); Lymphocytes Percent Auto 13.4 % (18.3-44.2); Mean Corpuscular HGB Conc 33.8 g/dl (32-36); Mean Corpuscular Hemoglobin 27.5 pg (26-34); Mean Corpuscular Volume 81.5 fl (80-100); Mean Platelet Volume 11.1 fl (7.4-10.4); Monocytes Absolute Auto 0.9 K/mm3 (0.1-0.6); Monocytes Percent Auto 8.7 % (2.6-8.5); Neutrophils Absolute Auto 6.9 K/mm3 (1.3-6.7); Neutrophils Percent Auto 70.4 % (45.5-73.1); Platelet Count Result 319 k/mm3 (150-375); Red Blood Count 4.76 M/mm3 (4.6-6.20); Red Cell Distribution Width 14.2 % (11.5-14.5); White Blood Count 9.7 K/mm3 (4.5-10.0)
[2021-01-23 05:28] LABS: Alanine Aminotransferase 59 U/L (4-50); Albumin Level 3.1 g/dL (3.5-5.1); Alkaline Phosphatase 66 U/L (38-126); Anion Gap 5 mmol/L (8-16); Aspartate Amino Transferase 45 U/L (17-59); Bilirubin,Total 0.4 mg/dL (0.2-1.3); Blood Urea Nitrogen 16 mg/dL (9-20); Calcium 8.5 mg/dL (8.4-10.2); Carbon Dioxide 28 mmol/L (22-30); Chloride 103 mmol/L (98-107); Estimated CRCL calculation 110 ml/min; Estimated Glomerular Filt Rate > 60; Glucose 162 mg/dL (75-110); Potassium 3.5 mmol/L (3.4-5.0); Sodium 136 mmol/L (137-145)
[2021-01-23 09:54] LABS: Glucose Point of Care 130 (65-105)
[2021-01-23] MEDS: METOPROLOL TARTRATE 25 MG TABLET PO (10:40)
[2021-01-23] MEDS: TAMSULOSIN HCL 0.4 MG CAPSULE PO (10:40)
[2021-01-23] MEDS: PANTOPRAZOLE 40 MG TABLET PO (10:40)
[2021-01-23] MEDS: metFORMIN HCL 500 MG TABLET 1000 MG PO (10:41)
[2021-01-23] MEDS: ATORVASTATIN 40 MG TABLET PO (10:41)
[2021-01-23] MEDS: ENOXAPARIN 40 MG/0.4 ML SYRINGE SUB-Q (10:42)
[2021-01-23] MEDS: ASPIRIN 325 MG TABLET PO (10:42)
[2021-01-23] MEDS: DEXAMETHASONE SOD PHOS INJ 4 MG/ML VIAL 6 MG IV PUSH (10:42)
[2021-01-23] MEDS: INSULIN HUMAN ISOPHAN/REGULAR 70/30 (*BKC) 100 UNITS/ML 20 UNITS SUB-Q (10:45)
--- NOTE | 2021-01-23 11:10 | HOMEO2EVAL ---
Evaluation was performed at [facility] Home Oxygen Evaluation RC: Home Oxygen (O2) Evaluation Start: 01/22/21 15:02 Freq: ONCE Status: Active Protocol: RPE Activity Type Activity Date Activity User E-Sign Co-Sign Detail Recorded Client Recorded Date Recorded By Document 01/23/21 10:33 KRM [email or web address] 01/23/21 11:10 KRM Document 01/23/21 10:53 KRM [email or web address] 01/23/21 11:10 KRM Document 01/23/21 10:55 KRM [email or web address] 01/23/21 11:10 KRM Document 01/23/21 10:57 KRM [email or web address] 01/23/21 11:10 KRM 01/23/21 01/23/21 01/23/21 10:33 10:53 10:55 Home O2 Evaluation Test Phase Resting Resting Exercise Oxygen Delivery Room Air Room Air Room Air Pulse Oximetry (90-100 %) 93 93 90 Pulse Rate (60-100 beats/min) 65 64 69 Activity Tolerance Good Ambulation Distance (feet) 50 Treatment Charges O2 Evaluation - Inpatient 01/23/21 10:57 Home O2 Evaluation Test Phase Exercise Oxygen Delivery Room Air Pulse Oximetry (90-100 %) 91 Pulse Rate (60-100 beats/min) 65 Activity Tolerance Good Ambulation Distance (feet) Treatment Charges
[2021-01-23] MEDS: INSULIN ASPART (*BKC) 100 UNITS/ML SUB-Q (13:24)
[2021-01-23 13:26] LABS: Glucose Point of Care 221 (65-105)
--- NOTE | 2021-01-23 13:30 | PCDIET ---
Weekly nutritional screen. Spoke with patient via phone due to COVID precautions. States appetite is real good . Denies c/o or concerns. Currently eating 75-100% of meals. No weight loss reported. No nutritional needs at this time.
--- NOTE | 2021-01-23 16:26 | PM.DS ---
DS: Admitting Diagnosis Admitting Diagnosis Admitting Diagnosis: Cough, n/v, SOB DS: Discharge Diagnosis Discharge Diagnosis (1) Pneumonia due to COVID-19 virus: Code(s): U07.1 - COVID-19; J12.82 - Pneumonia due to coronavirus disease 2018 Status: Acute Assessment and Plan: On admission, patient with cough, GI symptoms and SOB. CXR showing patchy bilateral disease. He tested positive for COVID on 01/15. He initially did not require O2 but quickly developed hypoxia on the material engineer hours on 01/18 with ABG 7.58/29/59 on 4L. Remdesivir and Decadron started 01/18. Pulmonary consulted and Convalescent Plasma given 01/18. Treated with Albuterol and Atrovent. He completed Remdesivir. Able to wean O2 off. Instructed patient to self-quarantine for 20 days after positive test. Also advised him that he received the plasma so no COVID vaccine until he speaks with his doctor. (2) Confusion: Code(s): R41.0 - Disorientation, unspecified Status: Acute Assessment and Plan: Patient's delirium related to COVID and/or from the urine retention. Patient became more alert and oriented. CT brain showing no acute findings. TSH and B12 levels okay. Resolved. (3) Atrial fibrillation with rapid ventricular response: Code(s): I48.91 - Unspecified atrial fibrillation Status: Acute Assessment and Plan: AFib most likely in response to his COVID pneumonia. [id number] 3 and was on Lovenox. He converted to sinus with Diltiazem and Metoprolol given in ED. Cardiology was consulted. He was continued on oral metoprolol. Echo showing EF 65-70% and Grade I diastolic dysfunction. No plans for parts counterman anticoagulation per cardiology. We added ASA per Cards recommendations. (4) Urine retention: Code(s): R33.9 - Retention of urine, unspecified Status: Acute Assessment and Plan: Patient was found to have urine retention. Lock catheter placed. Flomax added. We were able to remove Lock and he was able to void on his own. He states he feels he is emptying his bladder easily. (5) Type 2 diabetes mellitus without complication: Code(s): E11.9 - Type 2 diabetes mellitus without complications Status: Chronic Assessment and Plan: A1c 7.9. The patient's blood glucose was monitored closely. Glucose much higher related to him eating better and steroids. He was monitored with AccuCheks covering with sliding scale. Hypoglycemia protocol was available as needed. (6) Essential hypertension: Code(s): I10 - Essential (primary) hypertension Status: Chronic Assessment and Plan: Patient's blood pressure was monitored closely. Blood pressure remained well controlled. We continued current medications with metoprolol. (7) Mixed hyperlipidemia: Code(s): E78.2 - Mixed hyperlipidemia Status: Chronic Assessment and Plan: Liver enzymes elevated probably related to the virus. Lipitor was placed on hold. CT chest showing hepatic steatosis so elevated levels probably related to this. RUQ confirms hepatic steatosis o/w nothing acute. Liver enzymes still waxing and waning. We resumed his lipitor DS: Summary Hospital Course Reason for hospitalization: 65yo male with DM and HTN here for cough, n/v and SOB. Please see H&P for details. Hospital Course: Please see above for details of hospital course. Status at Discharge Cognitive/behavioral status at discharge: stable Time Spent with Patient Time attestation: Total time spent providing and/or coordinating discharge services: 38 minutes Time spent: Greater than 30 minutes Exam Narrative: Exam Narrative: AF 98.9 126/94 63 16 92% ra Gen - NARD Chest - few scattered wheezes but good air exchange, nml RR CV - RRR S1/S2. Telemetry showing no significant dysrhythmias Abd - Soft, NT/ND, Positive BS Ext - No pedal edema Psych - Nml mood and affect Skin
[2021-01-23 17:01] LABS: Glucose Point of Care 277 (65-105)
--- NOTE | 2021-01-23 17:37 | PC.NURSE ---
Patient discharged to home today. Discharge education and medication education was provided. Patient had no further questions at this time.
== END 2021-01-23 17:32 | disposition home or self-care (01) | DRG 177 ==
LOC: ANHED 22:12 → ANHIMU 22:35 → ANHICU 01-18 18:48 → ANHIMU 01-21 16:24
PROVIDERS: Family Medicine; Internal Medicine; Nurse Practitioner; Admitting Provider Internal Medicine; Emergency Provider Emergency Medicine; PCP Internal Medicine; Visit Provider Internal Medicine
DX: U07.1 COVID-19 (principal); J12.82 Pneumonia due to coronavirus disease 2019; J96.01 Acute respiratory failure with hypoxia; E87.1 Hypo-osmolality and hyponatremia; R41.0 Disorientation, unspecified; I48.91 Unspecified atrial fibrillation; I10 Essential (primary) hypertension; E11.9 Type 2 diabetes mellitus without complications; E78.2 Mixed hyperlipidemia; G47.30 Sleep apnea, unspecified; R33.9 Retention of urine, unspecified
CPT/HCPCS: 36415; 36430; 36600; 70450; 71045; 71275; 76705; 80053; 80074; 81001; 82375; 82565; 82607; 82746; 82805; 82948; 83036; 83050; 83605; 83615; 83690; 83735; 83880; 84100; 84145; 84443; 84460; 84484; 85025; 85027; 85380; 85610; 86140; 86900; 86901; 87040; 87086; 93005; 93306; 94618; 94640; 96365; 96366; 96367; 96368; 96372; 96374; 96375; 97161; 97165; 99285; A9270; C9803; G0378; J0456; J0696; J1100; J1650; J1815; J3475; J7030; P9059; Q9967; U0003; U0005

== ENCOUNTER 2022-01-29 09:24 | Outpatient (CLI) | payer MEDICARE, SELFPAY ==
--- NOTE | ~2022-01-29 | XR_ITS ---
XR chest 2V DATE: 01/29/2022 09:35 INDICATION: Dyspnea TECHNIQUE: 2 views COMPARISON: January 19, 2021 portable AP chest FINDINGS: Normal heart size. Mild aortic tortuosity. No hilar or mediastinal enlargement. No pulmonar y vascular congestion or pleural effusion. No pulmonary infiltrate or consolidation. No pneumothorax. Mild elevation left leaf of diaphragm, chronic. IMPRESSION: No active cardiopulmonary disease Reviewed, dictated and finalized at location A.
== END 2022-01-29 09:25 | disposition home or self-care (01) ==
PROVIDERS: PCP Internal Medicine; Visit Provider Internal Medicine
DX: R06.00 Dyspnea, unspecified (principal)
CPT/HCPCS: 71046

== ENCOUNTER 2023-10-16 01:33 | Day surgery (SDC) | payer MEDICARE, SELFPAY ==
[2023-10-08 08:11] VITALS: BMI 35.6
--- NOTE | 2023-10-14 11:39 | SUR.PREOP ---
Patient called regarding upcoming procedure. Message left on pt's voicemail regarding appointment times.
--- NOTE | 2023-10-15 15:32 | PM.HPGS ---
History of Present Illness History of Present Illness Consent: Risks, benefits, and alternatives have been discussed and questions answered. Patient agrees to proceed with procedure. Chief complaint: neoplasm screening Narrative: Shreyas Ramierz Sr. is a 67 year old male Who was referred for colon cancer screening. Seven years ago he had a tubular adenoma removed. Review of Systems Review of Systems: All systems reviewed & are unremarkable except as noted in HPI and below PMFSH Past Medical History Medical History Atrial fibrillation Essential hypertension Mixed hyperlipidemia Suspected 2018-nCoV infection Type 2 diabetes mellitus without complication Surgical History Surgical History No pertinent past surgical history Family History Family History Father Acute myocardial infarction Mother Acute myocardial infarction Sibling Multiple sclerosis Social History Social History Social History: The patient lives with his significant other. 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 The patient has 2 children. The patient stated he does not have a durable power employment attorney for healthcare. The patient is a full code. The patient is a lifelong nonsmoker. He denies any alcohol or illicit drugs. Smoking packs per day: 0.05 Smoking cigarettes per day: 1.0 Years smoked: 30 Smoking pack-years: 1.50 Smoking status: Never smoker Tobacco type: cigars Second hand tobacco smoke exposure: Yes Alcohol intake: never Substance use: never Substance use type: does not use Do You Feel Safe in your Home?: Yes Lack of Transportation: No Lack of Food: Never True Current Housing: I Have Housing Concerned About Future Housing: No Difficulty Paying Gas/Electric Bills: No Difficulty Paying for Meds: No Currently Unemployed: No Education: Trade/Vocational Certificate Difficulty w/ Childcare or Family Care: No Living arrangements: with family Gender identity (if verbalized by the patient): Male Spiritual care concerns: No Meds Home Medications and Allergies Home Medications Medication Instructions Recorded Confirmed Type aspirin 325 mg tablet 325 mg PO DAILY@0800 #30 tabs 01/23/21 10/16/23 Rx pen needle, diabetic 31 gauge x #100 ea 06/26/21 10/16/23 Rx 1/4 (ReliOn [place]) insulin human U-100 NPH-regulr See Rx Instructions subcut .COMPLEX 12/06/22 10/16/23 History 70-30 mix 100 unit/mL subcutaneous susp (Novolin 70/30 U-100 Insulin) clotrimazole 1 % topical cream 1 applic topical Q12H #45 grams 01/10/23 10/16/23 Rx metoprolol tartrate 25 mg tablet 12.5 mg PO BID 04/26/23 10/16/23 History tamsulosin 0.4 mg capsule 0.4 mg PO QAM #90 caps 05/20/23 10/16/23 Rx pantoprazole 20 mg tablet,delayed 20 mg PO QAM #90 tabs 07/22/23 10/16/23 Rx release losartan 100 1 tablet PO DAILY #90 tabs 08/09/23 10/16/23 Rx mg-hydrochlorothiazide 25 mg tablet rosuvastatin 40 mg tablet 40 mg PO DAILY #90 tabs 09/12/23 10/16/23 Rx carvedilol 25 mg tablet 25 mg PO Q12H #60 tabs 09/24/23 10/16/23 Rx alcohol swabs (BD Alcohol Swabs) See Rx Instructions .Route 09/26/23 10/16/23 Rx .COMPLEX #100 swabs lancets (Accu-Chek Softclix #100 ea 09/26/23 10/16/23 Rx Lancets) dapagliflozin propanediol 10 mg 10 mg PO DAILY #90 tabs 10/03/23 10/16/23 Rx tablet (Farxiga) glucagon 1 mg/0.2 mL subcutaneous 1 mg (0.2 mL) subcut ONCE #0.4 mL 10/03/23 10/16/23 Rx auto-injector (Gvoke HypoPen 2-Pack) glucose 4 gram chewable tablet 16 g PO Q15M PRN hypoglycemia #360 10/03/23 10/16/23 Rx tabs metformin 1,000 mg tablet 1,000 mg PO BID #180 tabs 10/03/23 10/16/23 Rx tirzepatide 5 mg/0.5 mL 5 mg (0.5 mL) subcut WEEKLY #2 mL 10/03/23 10/16/23 Rx subcutaneous pen injector (Moun
[2023-10-16 12:30] VITALS: BP 135/93; PULSE 96; RESP 18; TEMP 36.1; O2SAT 98; BMI 35.3
[2023-10-16] MEDS: LACTATED RINGERS 1,000 ML 150 ML IV CONT (12:41)
[2023-10-16 12:45] LABS: Glucose Point of Care 238 mg/dl (65-105)
--- NOTE | 2023-10-16 13:13 | WPDANESEPPF ---
Anes - Initial Pre Proc Eval Procedure: Operation Date: 10/16/23 13:30 Proposed Procedures p Screening Colonoscopy - Venu Evans MD Date/Time: 10/16/23 13:13 Surgeon: Venu Evans MD Pre Op Diagnosis: neoplasm screening Patient Data Age: 67 Gender: M Height: 1.68 m Weight: 99.2 kg Last Vital Signs Temp 96.9 F L 10/16/23 12:30 Pulse 96 10/16/23 12:30 Resp 18 10/16/23 12:30 BP 135/93 H 10/16/23 12:30 Pulse Ox 98 10/16/23 12:30 O2 Del Method Room Air 10/16/23 12:30 Allergies Allergy/AdvReac Type Severity Reaction Status Date / Time No Known Allergies Allergy Verified 10/16/23 12:26 Home Medications Medication Instructions Recorded Confirmed Type aspirin 325 mg tablet 325 mg PO DAILY@0800 #30 tabs 01/23/21 10/16/23 Rx pen needle, diabetic 31 gauge x #100 ea 06/26/21 10/16/23 Rx 1/4 (ReliOn [place]) insulin human U-100 NPH-regulr See Rx Instructions subcut .COMPLEX 12/06/22 10/16/23 History 70-30 mix 100 unit/mL subcutaneous susp (Novolin 70/30 U-100 Insulin) clotrimazole 1 % topical cream 1 applic topical Q12H #45 grams 01/10/23 10/16/23 Rx metoprolol tartrate 25 mg tablet 12.5 mg PO BID 04/26/23 10/16/23 History tamsulosin 0.4 mg capsule 0.4 mg PO QAM #90 caps 05/20/23 10/16/23 Rx pantoprazole 20 mg tablet,delayed 20 mg PO QAM #90 tabs 07/22/23 10/16/23 Rx release losartan 100 1 tablet PO DAILY #90 tabs 08/09/23 10/16/23 Rx mg-hydrochlorothiazide 25 mg tablet rosuvastatin 40 mg tablet 40 mg PO DAILY #90 tabs 09/12/23 10/16/23 Rx carvedilol 25 mg tablet 25 mg PO Q12H #60 tabs 09/24/23 10/16/23 Rx alcohol swabs (BD Alcohol Swabs) See Rx Instructions .Route 09/26/23 10/16/23 Rx .COMPLEX #100 swabs lancets (Accu-Chek Softclix #100 ea 09/26/23 10/16/23 Rx Lancets) dapagliflozin propanediol 10 mg 10 mg PO DAILY #90 tabs 10/03/23 10/16/23 Rx tablet (Farxiga) glucagon 1 mg/0.2 mL subcutaneous 1 mg (0.2 mL) subcut ONCE #0.4 mL 10/03/23 10/16/23 Rx auto-injector (Gvoke HypoPen 2-Pack) glucose 4 gram chewable tablet 16 g PO Q15M PRN hypoglycemia #360 10/03/23 10/16/23 Rx tabs metformin 1,000 mg tablet 1,000 mg PO BID #180 tabs 10/03/23 10/16/23 Rx tirzepatide 5 mg/0.5 mL 5 mg (0.5 mL) subcut WEEKLY #2 mL 10/03/23 10/16/23 Rx subcutaneous pen injector (Mounjaro) amlodipine 5 mg tablet 5 mg PO DAILY 10/08/23 10/16/23 History blood sugar diagnostic (Accu-Chek #100 ea 10/14/23 10/16/23 Rx Ling Plus test strips) Laboratory Tests 10/16/23 12:36 POC Capillary Glucose 238 H mg/dl (65-105) Patient hx anesthesia problems: none Family hx anesthesia problems: none Results Review: All pre-operative results and documents have been reviewed as part of the pre-operative evaluation. [facility] Past Medical History Medical History Atrial fibrillation Essential hypertension Mixed hyperlipidemia Suspected 2018-nCoV infection Type 2 diabetes mellitus without complication Surgical History Surgical History No pertinent past surgical history Family History Family History Father Acute myocardial infarction Mother Acute myocardial infarction Sibling Multiple sclerosis Social History Social History Social History: The patient lives with his significant other. 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 The patient has 2 children. The patient stated he does not have a durable power energy attorney for healthcare. The patient is a full code. The patient is a lifelong nonsmoker. He denies any alcohol or illicit drugs. Smoking packs per day: 0.05 Smoking cigarettes per day: 1.0 Years smoked: 30 Smoking pack-years: 1.50 Smoking status: Never smoker Tobacco type: cigars Second hand tobacco smoke
[2023-10-16 13:37] VITALS: BP 105/68; PULSE 83; RESP 18; O2SAT 91
[2023-10-16 13:47] VITALS: BP 121/78; PULSE 83; RESP 25; O2SAT 93
[2023-10-16 13:47] LABS: Glucose Point of Care 212 mg/dl (65-105)
[2023-10-16 13:57] VITALS: BP 125/87; PULSE 80; RESP 22; O2SAT 95
== END 2023-10-16 14:05 | disposition home or self-care (01) ==
PROVIDERS: PCP Family Medicine; Visit Provider Internal Medicine Gastroenterology
PROC: 0DJD8ZZ Inspection of Lower Intestinal Tract, Via Natural or Artificial Opening Endoscopic (ICD-10-PCS; CPT 45378; principal; 2023-10-16 13:30)
DX: Z12.11 Encounter for screening for malignant neoplasm of colon (principal); K63.5 Polyp of colon; K64.8 Other hemorrhoids; I48.91 Unspecified atrial fibrillation; I10 Essential (primary) hypertension; E78.2 Mixed hyperlipidemia; E11.9 Type 2 diabetes mellitus without complications; E66.9 Obesity, unspecified; Z68.35 Body mass index [BMI] 35.0-35.9, adult; Z79.4 Long term (current) use of insulin; Z79.82 Long term (current) use of aspirin; Z79.84 Long term (current) use of oral hypoglycemic drugs; Z79.85 Long-term (current) use of injectable non-insulin antidiabetic drugs
CPT/HCPCS: 45385; 82948; 88305; J2704; J7120

== ENCOUNTER 2023-10-31 13:13 | Outpatient (CLI) | payer MEDICARE, SELFPAY ==
--- NOTE | ~2023-10-31 | CT_ITS ---
EXAMINATION: CT lumbar spine wo con DATE: 10/31/2023 13:42 INDICATION: Dorsalgia, unspecified. TECHNIQUE: Computed tomography (CT) of the lumbar spine was performed without intravenous contrast. A utomated exposure control and iterative reconstruction technique were employed. The dose-length produ ct was 1310.96 mGy-cm. COMPARISON: None FINDINGS: There is 3 mm retrolisthesis of L1 on L2. There is 4 degrees dextrocurvature of lumbar spin e. Vertebral body heights are normal. There is mildly decreased disc height at L1-L2, L3-L4, and L5-S 1. The following disc levels are specifically discussed: L1-L2: The disc is bulging. There is mild bilateral facet joint osteoarthritis. There is mild bilater al neural foraminal stenosis. There is mild central canal stenosis. L2-L3: The disc is bulging. There is mild bilateral facet joint osteoarthritis. There is mild bilater al neural foraminal stenosis. There is mild central canal stenosis. L3-L4: The disc is bulging. There is mild bilateral facet joint osteoarthritis. There is mild bilater al neural foraminal stenosis. There is mild central canal stenosis. L4-L5: The disc is bulging. There is severe bilateral facet joint osteoarthritis. There is mild bilat eral neural foraminal stenosis. There is mild central canal stenosis. L5-S1: The disc is bulging. There is moderate right and severe left facet joint osteoarthritis. There is mild bilateral neural foraminal stenosis. There is mild central canal stenosis. IMPRESSION: 1. Mild lumbar spondylosis. Reviewed, dictated and finalized at location E. GER EVENT IMPRESSION: 1. Mild lumbar spondylosis.
== END 2023-10-31 13:14 | disposition home or self-care (01) ==
PROVIDERS: PCP Nurse Practitioner Family; Visit Provider Nurse Practitioner Family
DX: M47.896 Other spondylosis, lumbar region (principal)
CPT/HCPCS: 72131